=== PATIENT | male | born 1940 | race Caucasian/White ===

== ENCOUNTER 2021-07-18 09:27 | Inpatient (IN) | payer MEDICARE, SELFPAY ==
[2021-07-18] VITALS (20 sets, daily range): BP systolic 138–189; BP diastolic 80–99; PULSE 71–96; RESP 9–28; TEMP 36.4–37.1; O2SAT 95–99; BMI 35.2
--- NOTE | ~2021-07-18 | XR_ITS ---
EXAMINATION: XR chest 1V portable DATE: 07/18/2021 10:00 INDICATION: Altered mental status TECHNIQUE: frontal view of the chest was obtained. COMPARISON: Chest radiograph dated 11/07/2006 FINDINGS: Pulmonary vascular congestion and diffuse increased interstitial pattern throughout both lungs consis tent with mild pulmonary edema. No pleural effusion or pneumothorax. Heart size is within normal limi ts for AP technique. Likely moderate-sized hiatal hernia. Partially visualized vertical yann and pedic le screw fixation for posterior spinal fusion beginning in the lower thoracic spine and extending bel ow the inferior margin of the field of imaging. Visualized bones and soft tissues are unremarkable. IMPRESSION: 1. Pulmonary vascular congestion and mild pulmonary edema. 2. Moderate-sized hiatal hernia. Reviewed, dictated and finalized at location A. M TECH
--- NOTE | ~2021-07-18 | US_ITS ---
EXAMINATION: US venous doppler [facility] DATE: 07/19/2021 11:08 INDICATION: Lower limb swelling TECHNIQUE: Grayscale ultrasound images without and with compression and Doppler ultrasound images of the bilateral lower extremity veins were obtained. COMPARISON: None. FINDINGS: The visualized portions of right common femoral vein, profunda (deep) femoral vein, femoral vein, pop liteal vein, posterior tibial veins, peroneal veins, gastrocnemius vein and greater saphenous vein ou tflow are patent. The visualized portions of left common femoral vein, profunda femoral vein, femoral vein, popliteal v ein, posterior tibial veins, peroneal veins, gastrocnemius vein and greater saphenous vein outflow ar e patent. IMPRESSION: 1. No deep venous thrombosis in either lower limb. Reviewed, dictated and finalized at location A. T END MANAGER
--- NOTE | ~2021-07-18 | CT_ITS ---
EXAMINATION: CT brain wo con DATE: 07/18/2021 10:02 INDICATION: Altered mental status TECHNIQUE: Computed tomography (CT) of the head was performed without intravenous contrast. The dose- length product was 681.00 mGy-cm. Automated exposure control and iterative reconstruction technique were employed. COMPARISON: None FINDINGS: Generalized atrophy. No acute intracranial hemorrhage, infarction, mass or mass effect. No ventriculomegaly or midline shift. Basilar cisterns are patent. There are scattered moderate perivent ricular and subcortical white matter changes, most likely related to small vessel ischemic disease (m icroangiopathy). There is intracranial atherosclerosis. Paranasal sinuses and mastoids are pneumatize d. No depressed skull fractures. IMPRESSION: 1. No acute intracranial abnormality. 2: Chronic age-related findings. Reviewed, dictated and finalized at location B. OW UP SPECIALIST
--- NOTE | ~2021-07-18 | XR_ITS ---
EXAMINATION: XR humerus RT INDICATION: Right arm pain TECHNIQUE: Two views of the right humerus are obtained. COMPARISON: None available FINDINGS: There is advanced osteoarthritis of the glenohumeral and acromioclavicular joints. No fract ure is identified. The soft tissues are unremarkable. IMPRESSION: 1. 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 Reviewed, dictated and finalized at location F. ETING PROGRAMS SPECIALIST IMPRESSION: 1. 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
--- NOTE | 2021-07-18 09:30 | ECG_ITS ---
Measurements Intervals [place] Rate: 86 P: RI: 0 QRS: 6 QRSD: 98 T: 25 QT: 372 QTc: 445 Interpretive Statements ATRIAL FIBRILLATION BASELINE ARTIFACT- I, II, III, AVR, AVL, AVF, V1 ABNORMAL ECG Electronically Signed On 07-18-2021 13:03:52 JEWELRY CUTTER by Braulio Bunn D.O.
--- NOTE | 2021-07-18 09:38 | ED.GENADULT ---
HPI - General Adult General Chief complaint: Altered Mental Status Stated complaint: unresponsive Source: RN notes reviewed History of Present Illness HPI narrative: Patient presents emergency department from home via EMS for altered mental status. History is per the patient as well as the . Patient's states this morning the patient was sleeping in his bed she was sleeping and on the couch and he called her in stating that his machine which is referring to his CPAP machine was making him sick at that time she stated she did not know anything abnormal and took the mask and change it states he kept stating that he felt sick and rolled over but then she noted the patient appeared to not be breathing correctly that time she felt a pulse and could not feel pulse and called EMS when EMS initially arrived they are unable to feel a radial pulse and the patient was altered and not responsive to verbal stimuli and only minimal movement to painful stimuli as they got the pads onto the patient the patient returned back to becoming more awake patient is currently awake and alert x2 he has a history of dementia per the he denies any fevers or chills chest pain shortness of breath abdominal pain nausea vomiting or any other symptoms. Per the the patient did take two tramadol this morning Related Data Allergies Allergy/AdvReac Type Severity Reaction Status Date / Time morphine Allergy Mild SWELLING Verified 07/18/21 09:36 Review of Systems Review of Systems: Gen.: Denies fevers or chills ENT: Denies congestion Respiratory: Denies shortness of breath or cough CV: Denies chest pain or palpitations GI: Denies abdominal pain nausea, emesis or diarrhea denies burning, urgency, frequency or hematuria Musculoskeletal: Denies back pain or muscle pain Neuro: See HPI Skin: Denies rash Except as documented, all other systems reviewed and negative [facility] Past Medical History Medical History (Updated 07/18/21 @ 11:19 by Peewee Amin DO) Diabetes mellitus Hypertension Social History Social History (Updated 07/18/21 @ 10:03 by Peewee Amin DO) Smoking status: Never smoker Exam Narrative: APPEARANCE: No acute distress, nontoxic, resting in bed EYES: EOMI, PERRL HEENT: Normocephalic, atraumatic, OMM RESPIRATORY: No respiratory distress Clear to auscultation bilaterally with no rhonchi wheezing or rales. CARDIOVASCULAR: Irregular irregular without murmurs rubs or gallops. ABDOMINAL: Soft, nontender, nondistended, no rebound or guarding MUSCULOSKELETAl: Moves all extremities. No clubbing, cyanosis or edema. NEURO: Awake and alert x 2. Following commands, speech normal, no focal deficits SKIN:: Warm, dry. No rashes lesions or abrasions PSYCHIATRIC: Normal affect/mood, Course Course Emergency Course: Discussed with patient's he does have a history of atrial fibrillation sees cardiology at [facility] he had no anticoagulation past but now is only on baby aspirin he just recently been taken off of Plavix Discussed with Dr Feng presentation work-up agrees with admission at this time Discussed with Bianca BARTLETT for Dr. Merchant presentation work-up agrees with consult Discussed with patient and family results of workup and diagnosis. Discussed need for admission. Patient and family understand and agree to current treatment plan Vital Signs Vital signs: Vital Signs Temperature 98.7 F 07/18/21 09:28 Pulse Rate 86 07/18/21 09:28 Respiratory Rate 12 07/18/21 09:28 Blood Pressure 189/95 H 07/18/21 09:28 Pulse Oximetry 95 07/18/21 09:28 Temperature 98.7 F 07/18/21 09:28 Pulse Rate 86 07/18/21 09:28 Respiratory Rate 12 07/18/21 09:37 Blood Pressure 189/95 H 07/18/21 09:28 Pulse Oximetry 95 07/18/21 09:37 Medical Decision Making [facility] Narrative Medical decision making narrative: Patient with episode of altered mental status this morning rolled over in bed stating he fel
[2021-07-18 09:44] LABS: Glucose Point of Care 151 mg/dl (65-105)
[2021-07-18 10:00] LABS: Basophils Absolute Auto 0.1 K/mm3 (0.0-0.1); Basophils Percent Auto 0.6 % (0.2-1.2); Eosinophils Absolute Auto 0.3 K/mm3 (0-0.3); Eosinophils Percent Auto 3.2 % (0-4.4); Hematocrit 34.2 % (42.0-52.0); Hemoglobin 10.8 g/dL (14.0-18.0); Immature Granulocyte Absolute 0.04 K/mm3 (0.00-0.031); Immature Granulocyte Percent A 0.5 % (0-0.5); Lymphocytes Absolute Auto 1.41 K/mm3 (0.9-3.2); Lymphocytes Percent Auto 16.3 % (18.3-44.2); Mean Corpuscular HGB Conc 31.6 g/dl (32-36); Mean Corpuscular Hemoglobin 27.6 pg (26-34); Mean Corpuscular Volume 87.5 fl (80-100); Mean Platelet Volume 9.1 fl (7.4-10.4); Monocytes Absolute Auto 1.3 K/mm3 (0.1-0.6); Monocytes Percent Auto 14.6 % (2.6-8.5); Neutrophils Absolute Auto 5.6 K/mm3 (1.3-6.7); Neutrophils Percent Auto 64.8 % (45.5-73.1); Platelet Count Result 284 k/mm3 (150-375); Red Blood Count 3.91 M/mm3 (4.6-6.20); Red Cell Distribution Width 14.7 % (11.5-14.5); White Blood Count 8.6 K/mm3 (4.5-10.0)
[2021-07-18 10:09] LABS: INR 1.1
[2021-07-18 10:10] LABS: Partial Thromboplastin Time 28.9 SECONDS (22.3-36.8)
[2021-07-18 10:12] LABS: Alanine Aminotransferase 13 U/L (4-50); Albumin Level 4.1 g/dL (3.5-5.1); Alkaline Phosphatase 67 U/L (38-126); Anion Gap 10 mmol/L (8-16); Aspartate Amino Transferase 24 U/L (17-59); Bilirubin,Total 0.4 mg/dL (0.2-1.3); Blood Urea Nitrogen 17 mg/dL (9-20); Calcium 9.4 mg/dL (8.4-10.2); Carbon Dioxide 27 mmol/L (22-30); Chloride 99 mmol/L (98-107); Estimated Glomerular Filt Rate > 60; Glucose 161 mg/dL (65-110); Magnesium 1.6 mg/dL (1.6-2.3); Potassium 3.9 mmol/L (3.4-5.0); Sodium 136 mmol/L (137-145)
[2021-07-18 10:23] LABS: NT Pro B Type Natriuretic Pept 1530 pg/mL (5-100); Troponin I < 0.012 ng/mL (0.000-0.034)
[2021-07-18 10:29] LABS: Alveolar/Arterial O2 Gradient 32.8 mmHg; Base Excess ABG -0.8 mEq/l (+/-2.0); Device ROOM AIR; Fractional Inspired Oxygen 21 %; HCO3 ABG 22.7 mEq/l (22.0-26.0); Modified Allen's Test Pass; Oxygen Content ABG 15.2 %vol (16.0-22.0); Oxyhemoglobin 93.4 % THb (90.0-100.0); PCO2 ABG 33.4 mmHg (35.0-45.0); PO2 ABG 76.9 mmHg (80.0-100.0); PO2 FiO2 Ratio Arterial Blood 3.66 %; Site Drawn LEFT RADIAL; Total Hemoglobin 11.5 g/dL (12.0-18.0)
[2021-07-18 11:11] LABS: Add Urine Microscopic? NO; Appearance Urine Clear (Clear); Bilirubin Urine Negative (Negative); Blood Urine Negative (Negative); Color Urine Straw (Yellow); Glucose Urine UA Negative (Negative); Ketones Urine Negative (Negative); Leukocyte Esterase Ur Negative LEU/UL (Negative); Nitrate Urine Negative (Negative); Protein Urine Negative (Negative); Specific Grav Ur 1.006 (1.001-1.035); Urobilinogen Urine Negative mg/dL (<2.0)
--- NOTE | 2021-07-18 11:47 | PM.IMHP ---
H&P: HPI History of Present Illness Date/Time: PATIENT ADMITTED UNDER OBSERVATION STATUS 07/18/21 11:47 Chief Complaint: Unresponsive episode Narrative: Mr. Landis is an 6-year-old gentleman who presented to emergency room via EMS after having an unresponsive episode. Patient does have mild dementia and cannot relay all of his history, is at bedside and is supplementing patient's history. Patient states that he yelled for his this morning because he felt that his CPAP was making him sick. Patient's spouse states she went to check on him and he felt that his CPAP was pulling things in his face. Patient's spouse states she took the CPAP off and [facility] came [facility] patient was still complaining and then he turned onto his side and she states that he would not respond to her. Patient's spouse states she noticed that his breathing was very shallow and she attempted to find a pulse and was unable to feel pulses. Patient's spouse states she called 911 and they told her to start CPR, but she states she does not know how to do CPR and awaited for EMS arrival. Per patient spouse EMS arrived and they stated they could not find a pulse and when they were going to put the pads on the patient he started talking to them. Patient states he recalls his talking to him when he was laying on his side and he recalls talking to the paramedics. Patient denies any chest pain, palpitations, lightheadedness, or dizziness prior to this episode or at this time. Patient denies any shortness of breath, abdominal pain, dysuria, hematuria, fever or chills. Patient is complaining of right arm pain and states the arm hurts with palpation. Patient denies falling onto his arm or any trauma to the area. Patient states that the pain will come and go at times. Patient's spouse states he complained about 2 days ago and never mentioned it again. Patient has a known history of atrial fibrillation status post Watchman device. Patient was on anticoagulation up until last week when he ran out of his anticoagulant. Patient's spouse states that the quality controller had told the finish his prescription of anticoagulation and then stop. Patient's spouse states patient has no history of HI or coronary artery disease. He she states patient has no history of CVA. As already stated patient does have underlying dementia. Patient's spouse states she also does wound care on his legs at times. Patient has venous stasis and has a ?flare to his left leg at this time. Patient's spouse states that patient has never been seen by wound care. Review of Systems Review of Systems: 12 point review of systems was attempted with patient all pertinent positive and negative were pretreated remained remarkable. Unsure of how reliable review of systems are secondary to patient's underlying dementia PMFSH Past Medical History Medical History (Updated 07/18/21 @ 12:38 by Jennifer Yeung APRN) Atrial fibrillation Dementia Diabetes mellitus Dyslipidemia Hypertension LIBIA (obstructive sleep apnea) Presence of Watchman left atrial appendage closure device Prostate CA Traumatic amputation of left index finger Surgical History Surgical History (Updated 07/18/21 @ 12:04 by Jennifer Yeung APRN) History of appendectomy History of cataract removal with insertion of prosthetic lens History of lumbosacral spine surgery S/p total knee replacement, bilateral Traumatic amputation of right thumb Social History Social History (Updated 07/18/21 @ 12:04 by Jennifer Yeung APRN) Smoking status: Never smoker Alcohol intake: never Substance use: never Living arrangements: with family Occupation/Education: retired Meds Home Medications and Allergies Home Medications Medication Instructions Recorded Confirmed Type albuterol sulfate [Ventolin HFA] 2 puff INHALATION PRN PRN 07/18/21 07/18/21 History allopurinol 300 mg PO DAILY 07/18/21 07/18/21 History aspirin
[2021-07-18] MEDS: ENOXAPARIN 40 MG/0.4 ML SYRINGE SUB-Q (12:19)
--- NOTE | 2021-07-18 13:55 | ADMGEN ---
This patient, Jesus Landis, was admitted to Intensive Care Unit-2. Patient/family oriented to hospital policies and general routines including ID bracelet, bed and alarms, visiting hours, pain management, procedures, bathroom and other care routines, personal items, smoking policy, room service/diet, and visiting hours. Information on how to activate the Rapid Response Team has been discussed. Patient/Family are encouraged to report perceived risks to care and to ask questions if they do not understand what they are told or what they should do.
[2021-07-18 14:11] LABS: Troponin I < 0.012 ng/mL (0.000-0.034)
[2021-07-18 14:22] LABS: Glucose Point of Care 172 mg/dl (65-105)
[2021-07-18] MEDS: traMADol HCL (*CRX) 50 MG TABLET 100 MG PO ×2 (14:30→18:10)
--- NOTE | 2021-07-18 14:35 | PM.CNCAR ---
History of Present Illness History of Present Illness Consult date/time: 07/18/21 14:35 Consult reason: atrial fibrillation Reason For Visit: Altered Mental Status/CHF Narrative: This is an 80-year-old man that I am seeing this afternoon at the request of the hospitalist because he was brought into the hospital earlier this morning apparently because his was unable to arouse him at their home. I have never seen this gentleman before and I do not see any old records at [facility] in the electronic record. He has a history of dementia and according to the records a history of chronic atrial fibrillation. The patient is aware of the fact that he has a diagnosis of atrial fibrillation and cannot really tell me much about the specific management of it. He does state that he his furniture dipper who apparently practices at [facility] in [place] recommended and implanted a Watchman device several months ago. He was on some anticoagulation therapy for a short time after the procedure which is subsequently been stopped. He can not really tell me of any other specific cardiac problems or diagnosis. Apparently he also has sleep apnea and uses a CPAP device chronically. The patient states that he was concerned that he had problem with his CPAP device since it was blowing air and his face. He states his came in to help him adjusted after that apparently she was unable to arouse him Niyah get a response. She could not feel a radial artery pulse and so she called 911. Apparently according to the record EMS did feel a pulse in spontaneously he regained responsiveness at the scene. He was brought into this hospital and admitted to the IMU for further observation and management. He of course does not take an anticoagulant since he had just had a Watchman device deployed for that reason. He takes a modest dose of metoprolol lisinopril and atorvastatin. He does not report having any recent chest pain pressure or heaviness he had has never had a syncopal episode in the past that he is aware of. In this setting we have been asked to see him in consultation. Since he has been in the hospital nothing other than rate controlled AFib has been demonstrated on telemetry he no significant tachy or bradycardic episodes have been recorder ordered or a demonstrated. It should also be mentioned that he has do not resuscitate orders on his chart Review of Systems Constitutional: Constitutional: Reports lethargy Eyes: Eyes: Reports no additional eye complaints ENT: Reports system reviewed and no additional complaints, except as documented Cardiovascular: Cardiovascular: Reports as per HPI Respiratory: Respiratory: Reports no additional respiratory complaints Musculoskeletal: Musculoskeletal: Reports no additional musculoskeletal complaints Integumentary/Breasts: Skin/Breast: Reports system reviewed and no additional complaints, except as docu Neurologic: Reports system reviewed and no additional complaints, except as documented Endocrine: Endocrine: Reports no additional endocrine complaints Hematologic/Lymphatic: Hematologic/Lymphatic: Reports no additional hematologic/lymphatic complaints Allergic/Immunologic: Allergic/Immunologic: Reports no additional allergic/immunologic complaints [facility] Past Medical History Medical History (Updated 07/18/21 @ 12:38 by Jennifer Yeung APRN) Atrial fibrillation Dementia Diabetes mellitus Dyslipidemia Hypertension LIBIA (obstructive sleep apnea) Presence of Watchman left atrial appendage closure device Prostate CA Traumatic amputation of left index finger Surgical History Surgical History (Updated 07/18/21 @ 12:04 by Jennifer Yeung APRN) History of appendectomy History of cataract removal with insertion of prosthetic lens History of lumbosacral spine surgery S/p total knee replacement, bilateral Traumatic amputation of right thumb Social History Social History (Updated 07/18/21
[2021-07-18 17:17] LABS: Troponin I < 0.012 ng/mL (0.000-0.034)
[2021-07-18 17:36] LABS: Glucose Point of Care 185 mg/dl (65-105)
[2021-07-18] MEDS: FUROSEMIDE 40 MG TABLET PO (18:10)
[2021-07-18] MEDS: PANTOPRAZOLE 40 MG TABLET PO (20:42)
[2021-07-18] MEDS: INSULIN GLARGINE (*BKC) 100 UNITS/ML 25 UNITS SUB-Q (20:47)
[2021-07-18 21:08] LABS: Glucose Point of Care 248 mg/dl (65-105)
[2021-07-19] VITALS (16 sets, daily range): BP systolic 115–155; BP diastolic 70–101; PULSE 75–114; RESP 20–27; TEMP 36.9–37.2; O2SAT 91–98
[2021-07-19 06:44] LABS: Basophils Absolute Auto 0.1 K/mm3 (0.0-0.1); Basophils Percent Auto 0.5 % (0.2-1.2); Eosinophils Absolute Auto 0.1 K/mm3 (0-0.3); Eosinophils Percent Auto 0.9 % (0-4.4); Hematocrit 34.4 % (42.0-52.0); Hemoglobin 10.8 g/dL (14.0-18.0); Immature Granulocyte Absolute 0.06 K/mm3 (0.00-0.031); Immature Granulocyte Percent A 0.5 % (0-0.5); Lymphocytes Absolute Auto 1.37 K/mm3 (0.9-3.2); Lymphocytes Percent Auto 12.3 % (18.3-44.2); Mean Corpuscular HGB Conc 31.4 g/dl (32-36); Mean Corpuscular Hemoglobin 27.4 pg (26-34); Mean Corpuscular Volume 87.3 fl (80-100); Mean Platelet Volume 9.4 fl (7.4-10.4); Monocytes Absolute Auto 1.3 K/mm3 (0.1-0.6); Monocytes Percent Auto 11.7 % (2.6-8.5); Neutrophils Absolute Auto 8.2 K/mm3 (1.3-6.7); Neutrophils Percent Auto 74.1 % (45.5-73.1); Platelet Count Result 277 k/mm3 (150-375); Red Blood Count 3.94 M/mm3 (4.6-6.20); Red Cell Distribution Width 14.7 % (11.5-14.5); White Blood Count 11.1 K/mm3 (4.5-10.0)
[2021-07-19 07:02] LABS: Anion Gap 8 mmol/L (8-16); Blood Urea Nitrogen 14 mg/dL (9-20); Calcium 9.1 mg/dL (8.4-10.2); Carbon Dioxide 27 mmol/L (22-30); Chloride 102 mmol/L (98-107); Estimated CRCL calculation 95 ml/min; Estimated Glomerular Filt Rate > 60; Glucose 171 mg/dL (65-110); Potassium 3.6 mmol/L (3.4-5.0); Sodium 137 mmol/L (137-145)
[2021-07-19] MEDS: MAGNESIUM SULF 2 GM/WATER 50ML 2 GM/50 ML BAG IVPB (07:53)
[2021-07-19] MEDS: traMADol HCL (*CRX) 50 MG TABLET 100 MG PO ×3 (07:53→20:13)
[2021-07-19] MEDS: allopurinoL 300 MG TABLET PO (07:54)
[2021-07-19] MEDS: POTASSIUM CHLORIDE 20 MEQ TABLET 40 MEQ PO (07:54)
[2021-07-19] MEDS: ASPIRIN 81 MG CHEWABLE TABLET PO (07:54)
[2021-07-19] MEDS: POTASSIUM CHLORIDE 10 MEQ TABLET.ER PO (07:54)
[2021-07-19] MEDS: FUROSEMIDE 40 MG TABLET PO ×2 (07:55→16:46)
[2021-07-19] MEDS: METOPROLOL SUCCINATE EXT REL 25 MG TABCR PO (07:55)
[2021-07-19] MEDS: ATORVASTATIN 40 MG TABLET PO (07:55)
[2021-07-19] MEDS: lisinopriL 10 MG TABLET PO (07:55)
[2021-07-19] MEDS: ISOSORBIDE MONONITRATE 30 MG TAB.ER.24H PO (07:55)
[2021-07-19] MEDS: SERTRALINE HCL 50 MG TABLET PO (07:56)
[2021-07-19] MEDS: PANTOPRAZOLE 40 MG TABLET PO ×2 (07:56→20:14)
[2021-07-19 08:17] LABS: Glucose Point of Care 176 mg/dl (65-105)
--- NOTE | 2021-07-19 09:12 | PM.IMPN ---
Progress Note: A&P Assessment and Plan (1) Unresponsive episode: Code(s): R41.89 - Other symptoms and signs involving cognitive functions and awareness Status: Acute Assessment and Plan: Etiology is unclear, CT head was negative for any acute intracranial abnormalities. -patient seems to be at baseline, answers to questions appropriately moves all extremities. 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 at [facility] in [place] -will increase metoprolol for better rate controlled and blood pressure control (3) LIBIA (obstructive sleep apnea): Code(s): G47.33 - Obstructive sleep apnea (adult) (pediatric) Status: Acute Assessment and Plan: CPAP at night and while asleep (4) Hypertension: Code(s): I10 - Essential (primary) hypertension Status: Acute Assessment and Plan: Continue Lasix, isosorbide mononitrate, lisinopril, metoprolol (5) Diabetes mellitus: Code(s): E11.9 - Type 2 diabetes mellitus without complications Status: Acute Assessment and Plan: Continue Lantus and Januvia -Accu-Cheks and sliding scale insulin (6) Dementia: Code(s): F03.90 - Unspecified dementia without behavioral disturbance Status: Acute Assessment and Plan: Continue Sertraline Additional Plan DVT prophylaxis: Enoxaparin Stress ulcer prophylaxis: Protonix Code status: Do not resuscitate This dictation may have been done utilizing a voice recognition system. Attempts have been made to correct errors. However, there may be uncorrected grammatical, spelling, and recognition errors present Subjective Date/time seen: 07/19/21 09:12 Interval history: 80-year-old male with past medical history of atrial fibrillation status post Watchman device, dementia, diabetes, hyperlipidemia, hypertension, obstructive sleep apnea, prostate cancer presented the ED on 07/18/2021 with complains of unresponsive episodes likely related to his CPAP not working well. CT scan of the head did not show any acute intracranial abnormalities, chest x-ray showed pulmonary vascular congestion and mild pulmonary edema. 07/19/2021: Patient seen and examined the ICU, is awake, alert, oriented to place and person, answers to questions appropriately, follows hands appropriately. States he wants to go home. Remains in AFib,, hemodynamically stable, afebrile with low urine output. On room air with good O2 sats. Review of Systems Review of Systems: All systems reviewed & are unremarkable except as noted in HPI and below Exam Narrative: General: Patient is awake in no distress HEENT: Pupils equal and reactive Neck: Supple Respiratory: Clear to auscultation bilaterally Cardiac: Irregularly regular rhythm, tachycardia Abdomen: Soft, nontender, nondistended, normoactive bowel sounds. Abdomen is protuberant Extremities: No edema, Neuro: Patient is awake, alert, oriented to place and person, follows simple commands in all extremities and answers to questions appropriately Skin: Dry skin, warm Psych: Normal affect and mentation Objective Data Vital Signs Vital Signs: Vital Signs - 24 hr 07/18/21 09:28 07/18/21 09:35 07/18/21 09:37 Temperature 98.7 F Pulse Rate 86 81 Respiratory Rate 12 11 L 12 Blood Pressure 189/95 H Pulse Oximetry 95 99 95 07/18/21 10:08 07/18/21 10:28 07/18/21 10:30 Temperature Pulse Rate 81 74 77 Respiratory Rate 11 L 14 14 Blood Pressure Pulse Oximetry 96 98 97 07/18/21 10:31 07/18/21 10:55 07/18/21 11:05 Temperature Pulse Rate 92 73 81 Respiratory Rate 17 28 H 18 Blood Pressure 157/99 H Pulse Oximetry 98 07/18/21 11:18 07/18/21 11:31 07/18/21 11:33 Temper
[2021-07-19] MEDS: METOPROLOL SUCCINATE EXT REL 12.5 MG TABCR PO (10:14)
[2021-07-19] MEDS: ENOXAPARIN 40 MG/0.4 ML SYRINGE SUB-Q (10:15)
[2021-07-19 11:59] LABS: Glucose Point of Care 243 mg/dl (65-105)
[2021-07-19] MEDS: INSULIN ASPART (*BKC) 100 UNITS/ML SUB-Q ×2 (13:03→20:15)
[2021-07-19 16:51] LABS: Glucose Point of Care 195 mg/dl (65-105)
[2021-07-19] MEDS: INSULIN GLARGINE (*BKC) 100 UNITS/ML 25 UNITS SUB-Q (20:14)
[2021-07-19 20:53] LABS: Glucose Point of Care 230 mg/dl (65-105)
[2021-07-20] VITALS (14 sets, daily range): BP systolic 112–149; BP diastolic 54–98; PULSE 66–98; RESP 14–26; TEMP 36.4–36.8; O2SAT 91–97
[2021-07-20 04:36] LABS: Basophils Absolute Auto 0.1 K/mm3 (0.0-0.1); Basophils Percent Auto 0.5 % (0.2-1.2); Eosinophils Absolute Auto 0.2 K/mm3 (0-0.3); Eosinophils Percent Auto 1.9 % (0-4.4); Hemoglobin 10.9 g/dL (14.0-18.0); Immature Granulocyte Absolute 0.04 K/mm3 (0.00-0.031); Immature Granulocyte Percent A 0.4 % (0-0.5); Lymphocytes Absolute Auto 1.47 K/mm3 (0.9-3.2); Lymphocytes Percent Auto 13.5 % (18.3-44.2); Mean Corpuscular HGB Conc 31.1 g/dl (32-36); Mean Corpuscular Hemoglobin 27.6 pg (26-34); Mean Corpuscular Volume 88.6 fl (80-100); Mean Platelet Volume 9.4 fl (7.4-10.4); Monocytes Absolute Auto 1.3 K/mm3 (0.1-0.6); Monocytes Percent Auto 12.2 % (2.6-8.5); Neutrophils Absolute Auto 7.8 K/mm3 (1.3-6.7); Neutrophils Percent Auto 71.5 % (45.5-73.1); Platelet Count Result 279 k/mm3 (150-375); Red Blood Count 3.95 M/mm3 (4.6-6.20); Red Cell Distribution Width 14.8 % (11.5-14.5); White Blood Count 10.9 K/mm3 (4.5-10.0)
[2021-07-20 04:49] LABS: Anion Gap 5 mmol/L (8-16); Blood Urea Nitrogen 16 mg/dL (9-20); Calcium 8.7 mg/dL (8.4-10.2); Carbon Dioxide 29 mmol/L (22-30); Chloride 102 mmol/L (98-107); Estimated CRCL calculation 84 ml/min; Estimated Glomerular Filt Rate > 60; Glucose 175 mg/dL (65-110); Potassium 3.9 mmol/L (3.4-5.0); Sodium 136 mmol/L (137-145)
[2021-07-20 08:15] LABS: Glucose Point of Care 178 mg/dl (65-105)
[2021-07-20] MEDS: POTASSIUM CHLORIDE 10 MEQ TABLET.ER PO (08:45)
[2021-07-20] MEDS: ASPIRIN 81 MG CHEWABLE TABLET PO (08:45)
[2021-07-20] MEDS: FUROSEMIDE 40 MG TABLET PO ×2 (08:46→16:59)
[2021-07-20] MEDS: allopurinoL 300 MG TABLET PO (08:46)
[2021-07-20] MEDS: ATORVASTATIN 40 MG TABLET PO (08:46)
[2021-07-20] MEDS: ENOXAPARIN 40 MG/0.4 ML SYRINGE SUB-Q (08:46)
[2021-07-20] MEDS: lisinopriL 10 MG TABLET PO (08:46)
[2021-07-20] MEDS: ISOSORBIDE MONONITRATE 30 MG TAB.ER.24H PO (08:46)
[2021-07-20] MEDS: SERTRALINE HCL 50 MG TABLET PO (08:47)
[2021-07-20] MEDS: METOPROLOL SUCCINATE EXT REL 12.5 MG TABCR 37.5 MG PO (08:47)
[2021-07-20] MEDS: PANTOPRAZOLE 40 MG TABLET PO ×2 (08:47→20:18)
[2021-07-20] MEDS: traMADol HCL (*CRX) 50 MG TABLET 100 MG PO ×3 (08:48→16:58)
--- NOTE | 2021-07-20 09:42 | PM.IMPN ---
Progress Note: A&P Assessment and Plan (1) Unresponsive episode: Code(s): R41.89 - Other symptoms and signs involving cognitive functions and awareness Status: Acute Assessment and Plan: Unclear etiology, CT head was negative for any acute intracranial abnormalities., according the patient and his it could have been secondary to his CPAP malfunctioning -patient seems to be at baseline, answers to questions appropriately moves all extremities. 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 kettle tender at [facility] -continue metoprolol for better rate control and blood pressure control (3) LIBIA (obstructive sleep apnea): Code(s): G47.33 - Obstructive sleep apnea (adult) (pediatric) Status: Acute Assessment and Plan: CPAP at night and while asleep (4) Hypertension: Code(s): I10 - Essential (primary) hypertension Status: Acute Assessment and Plan: Continue Lasix, isosorbide mononitrate, lisinopril, metoprolol (5) Diabetes mellitus: Code(s): E11.9 - Type 2 diabetes mellitus without complications Status: Acute Assessment and Plan: Continue Lantus and Januvia -Accu-Cheks and sliding scale insulin (6) Dementia: Code(s): F03.90 - Unspecified dementia without behavioral disturbance Status: Acute Assessment and Plan: Continue Sertraline Additional Plan DVT prophylaxis: Enoxaparin Stress ulcer prophylaxis: Protonix Code status: Do not resuscitate This dictation may have been done utilizing a voice recognition system. Attempts have been made to correct errors. However, there may be uncorrected grammatical, spelling, and recognition errors present Subjective Date/time seen: 07/20/21 09:42 Interval history: 80-year-old male with past medical history of atrial fibrillation status post Watchman device, dementia, diabetes, hyperlipidemia, hypertension, obstructive sleep apnea, prostate cancer presented the ED on 07/18/2021 with complains of unresponsive episodes likely related to his CPAP not working well. CT scan of the head did not show any acute intracranial abnormalities, chest x-ray showed pulmonary vascular congestion and mild pulmonary edema. 07/20/2021: Patient seen and examined the ICU, is awake, alert, oriented to place and person, answers to questions appropriately, follows simple commands in all extremities. He is complaining of unable to move his bowels, constipation occasionally at home. Remains in AFib,, hemodynamically stable, afebrile urine output has been adequate, currently on room air with good O2 sats. Denies any chest pain, abdominal pain, nausea, vomiting Review of Systems Review of Systems: All systems reviewed & are unremarkable except as noted in HPI and below Exam Narrative: General: Patient is awake in no distress HEENT: Pupils equal and reactive Neck: Supple Respiratory: Clear to auscultation bilaterally Cardiac: Irregularly regular rhythm, tachycardia Abdomen: Soft, nontender, nondistended, normoactive bowel sounds. Abdomen is protuberant Extremities: No edema, Neuro: Patient is awake, alert, oriented to place and person, follows simple commands in all extremities and answers to questions appropriately Skin: Dry skin, warm Psych: Normal affect and mentation Objective Data Vital Signs Vital Signs: Vital Signs - 24 hr 07/19/21 10:00 07/19/21 10:14 07/19/21 12:00 Temperature 99 F Pulse Rate 101 H 98 83 Respiratory Rate 22 H Blood Pressure 118/70 Pulse Oximetry 94 07/19/21 14:00 07/19/21 16:00 07/19/21 18:00 Temperature Pulse Rate 91 89 90 Respiratory Rate 22 H Blood Pressure 115/71 Pulse Oximetry 96 06/29
[2021-07-20] MEDS: SENNA/DOCUSATE SODIUM TABLET 1 TAB PO (11:24)
[2021-07-20 12:44] LABS: Glucose Point of Care 207 mg/dl (65-105)
[2021-07-20] MEDS: INSULIN ASPART (*BKC) 100 UNITS/ML SUB-Q (13:28)
--- NOTE | 2021-07-20 15:25 | PC.NURSE ---
PATIENT TRANSFERRED TO ROOM 251. REPORT CALLED TO SHANNA GOMEZ. ALL QUESTIONS ANSWERED.
[2021-07-20 16:36] LABS: Glucose Point of Care 156 mg/dl (65-105)
--- NOTE | 2021-07-20 17:26 | PM.IMPN ---
Progress Note: A&P Assessment and Plan (1) Unresponsive episode: Code(s): R41.89 - Other symptoms and signs involving cognitive functions and awareness Status: Acute Assessment and Plan: Unclear etiology, CT head was negative for any acute intracranial abnormalities., according the patient and his it could have been secondary to his CPAP malfunctioning -patient seems to be at baseline, answers to questions appropriately moves all extremities. 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 a flattening machine operator at [facility] -continue metoprolol for better rate control and blood pressure control (3) LIBIA (obstructive sleep apnea): Code(s): G47.33 - Obstructive sleep apnea (adult) (pediatric) Status: Acute Assessment and Plan: CPAP at night and while asleep (4) Hypertension: Code(s): I10 - Essential (primary) hypertension Status: Acute Assessment and Plan: Continue Lasix, isosorbide mononitrate, lisinopril, metoprolol (5) Diabetes mellitus: Code(s): E11.9 - Type 2 diabetes mellitus without complications Status: Acute Assessment and Plan: Continue Lantus and Januvia -Accu-Cheks and sliding scale insulin (6) Dementia: Code(s): F03.90 - Unspecified dementia without behavioral disturbance Status: Acute Assessment and Plan: Continue Sertraline Additional Plan DVT prophylaxis: Enoxaparin Stress ulcer prophylaxis: Protonix Code status: Do not resuscitate This dictation may have been done utilizing a voice recognition system. Attempts have been made to correct errors. However, there may be uncorrected grammatical, spelling, and recognition errors present Subjective Date/time seen: 07/20/21 17:26 S: Patient was seen examined at the bedside. He denies any complaints. Appetite is robust. He is anxious to go home. Interval history: 80-year-old male with past medical history of atrial fibrillation status post Watchman device, dementia, diabetes, hyperlipidemia, hypertension, obstructive sleep apnea, prostate cancer presented the ED on 07/18/2021 with complains of unresponsive episodes likely related to his CPAP not working well. CT scan of the head did not show any acute intracranial abnormalities, chest x-ray showed pulmonary vascular congestion and mild pulmonary edema. 07/20/2021: Patient seen and examined the ICU, is awake, alert, oriented to place and person, answers to questions appropriately, follows simple commands in all extremities. He is complaining of unable to move his bowels, constipation occasionally at home. Remains in AFib,, hemodynamically stable, afebrile urine output has been adequate, currently on room air with good O2 sats. Denies any chest pain, abdominal pain, nausea, vomiting Review of Systems Review of Systems: All systems reviewed & are unremarkable except as noted in HPI and below Neurologic: Reports confusion (Patient confused to time but does reorient) Psychiatric: Psychiatric: Reports confusion (Patient confused to time but does reorient) Exam Narrative: General: Patient is awake in no distress HEENT: Pupils equal and reactive Neck: Supple Respiratory: Clear to auscultation bilaterally Cardiac: Irregularly regular rhythm, tachycardia Abdomen: Soft, nontender, nondistended, normoactive bowel sounds. Abdomen is protuberant Extremities: No edema, Neuro: Patient is awake, alert, oriented to place and person, follows simple commands in all extremities and answers to questions appropriately Skin: Dry skin, warm Psych: Normal affect and mentation Const: General: cooperative, no acute distress, alert, awake and confusion (Patient confused to time but pereira
--- NOTE | 2021-07-20 17:57 | PM.DS ---
DS: Admitting Diagnosis Discharge Date 07/20/2021 Admitting Diagnosis (1) Unresponsive episode: (2) Atrial fibrillation: (3) Hypertension: (4) Diabetes mellitus: (5) LIBIA (obstructive sleep apnea): DS: Discharge Diagnosis Discharge Diagnosis (1) Unresponsive episode: Code(s): R41.89 - Other symptoms and signs involving cognitive functions and awareness Status: Acute Assessment and Plan: Unclear etiology, CT head was negative for any acute intracranial abnormalities., according the patient and his it could have been secondary to his CPAP malfunctioning -patient seems to be at baseline, answers to questions appropriately moves all extremities. 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 a net software developer at [facility] -continue metoprolol for better rate control and blood pressure control (3) LIBIA (obstructive sleep apnea): Code(s): G47.33 - Obstructive sleep apnea (adult) (pediatric) Status: Acute Assessment and Plan: CPAP at night and while asleep (4) Hypertension: Code(s): I10 - Essential (primary) hypertension Status: Acute Assessment and Plan: Continue Lasix, isosorbide mononitrate, lisinopril, metoprolol (5) Diabetes mellitus: Code(s): E11.9 - Type 2 diabetes mellitus without complications Status: Acute Assessment and Plan: Continue Lantus and Januvia -Accu-Cheks and sliding scale insulin (6) Dementia: Code(s): F03.90 - Unspecified dementia without behavioral disturbance Status: Acute Assessment and Plan: Continue Sertraline DS: Summary Hospital Course Reason for hospitalization: Unresponsiveness. Hospital Course: Please refer to admission H& P. Briefly,Mr. Landis is an 80-year-old gentleman who presented to emergency room via EMS after having an unresponsive episode. Patient does have mild dementia and cannot relay all of his history, is at bedside and is supplementing patient's history. Patient states that he yelled for his this morning because he felt that his CPAP was making him sick. Patient's spouse states she went to check on him and he felt that his CPAP was pulling things in his face. Patient's spouse states [facility] patient was still complaining and then he turned onto his side and she states that he would not respond to her. Patient's spouse states she noticed that his breathing was very shallow and she attempted to find a pulse and was unable to feel pulses. Patient's spouse states she called 911 and they told her to start CPR, but she states she does not know how to do CPR and awaited for EMS arrival. Per patient spouse EMS arrived and they stated they could not find a pulse and when they were going to put the pads on the patient he started talking to them. Patient states he recalls his talking to him when he was laying on his side and he recalls talking to the paramedics. Patient has a known history of atrial fibrillation status post Watchman device. Patient was on anticoagulation up until last week when he ran out of his anticoagulant. Patient's spouse states that the net software developer had told the finish his prescription of anticoagulation and then stop. Patient's spouse states patient has no history of IL or coronary artery disease. He she states patient has no history of CVA. As already stated patient does have underlying dementia. Patient's spouse states she also does wound care on his legs at times. Patient has venous stasis and has a ?flare to his left leg at this time. Patient's spouse states that patient has never been seen by wound care. Time Spent with Patient Time attestation: Total time spe
--- NOTE | 2021-07-20 19:22 | PC.NURSE ---
This patient, Jesus Landis, was received from [ ICU] on 07/20/21 at 1615. Patient/family oriented to unit policies and routines
[2021-07-20] MEDS: INSULIN GLARGINE (*BKC) 100 UNITS/ML 25 UNITS SUB-Q (20:18)
[2021-07-20 21:25] LABS: Glucose Point of Care 186 mg/dl (65-105)
[2021-07-21] VITALS: BP 117/72; PULSE 72; RESP 17; TEMP 36.6; O2SAT 97
[2021-07-21 01:15] VITALS: PULSE 91; O2SAT 93
[2021-07-21 04:51] VITALS: PULSE 84; O2SAT 94
[2021-07-21 05:57] LABS: Basophils Absolute Auto 0.1 K/mm3 (0.0-0.1); Basophils Percent Auto 0.6 % (0.2-1.2); Eosinophils Absolute Auto 0.3 K/mm3 (0-0.3); Eosinophils Percent Auto 2.5 % (0-4.4); Hematocrit 34.7 % (42.0-52.0); Hemoglobin 10.6 g/dL (14.0-18.0); Immature Granulocyte Absolute 0.07 K/mm3 (0.00-0.031); Immature Granulocyte Percent A 0.6 % (0-0.5); Lymphocytes Absolute Auto 1.65 K/mm3 (0.9-3.2); Lymphocytes Percent Auto 13.9 % (18.3-44.2); Mean Corpuscular HGB Conc 30.5 g/dl (32-36); Mean Corpuscular Hemoglobin 27.3 pg (26-34); Mean Corpuscular Volume 89.4 fl (80-100); Mean Platelet Volume 9.4 fl (7.4-10.4); Monocytes Absolute Auto 1.5 K/mm3 (0.1-0.6); Neutrophils Absolute Auto 8.2 K/mm3 (1.3-6.7); Neutrophils Percent Auto 69.4 % (45.5-73.1); Platelet Count Result 291 k/mm3 (150-375); Red Blood Count 3.88 M/mm3 (4.6-6.20); White Blood Count 11.9 K/mm3 (4.5-10.0)
[2021-07-21 06:15] LABS: Anion Gap 7 mmol/L (8-16); Blood Urea Nitrogen 20 mg/dL (9-20); Calcium 8.7 mg/dL (8.4-10.2); Carbon Dioxide 29 mmol/L (22-30); Chloride 100 mmol/L (98-107); Estimated CRCL calculation 74 ml/min; Estimated Glomerular Filt Rate > 60; Glucose 166 mg/dL (65-110); Potassium 3.8 mmol/L (3.4-5.0); Sodium 136 mmol/L (137-145)
[2021-07-21 08:14] LABS: Glucose Point of Care 152 mg/dl (65-105)
[2021-07-21] MEDS: POTASSIUM CHLORIDE 10 MEQ TABLET.ER PO (08:32)
[2021-07-21] MEDS: ATORVASTATIN 40 MG TABLET PO (08:32)
[2021-07-21] MEDS: ENOXAPARIN 40 MG/0.4 ML SYRINGE SUB-Q (08:32)
[2021-07-21] MEDS: ISOSORBIDE MONONITRATE 30 MG TAB.ER.24H PO (08:32)
[2021-07-21] MEDS: allopurinoL 300 MG TABLET PO (08:32)
[2021-07-21] MEDS: FUROSEMIDE 40 MG TABLET PO (08:32)
[2021-07-21] MEDS: ASPIRIN 81 MG CHEWABLE TABLET PO (08:32)
[2021-07-21 08:33] VITALS: PULSE 75
[2021-07-21] MEDS: PANTOPRAZOLE 40 MG TABLET PO (08:33)
[2021-07-21] MEDS: METOPROLOL SUCCINATE EXT REL 12.5 MG TABCR 37.5 MG PO (08:33)
[2021-07-21] MEDS: lisinopriL 10 MG TABLET PO (08:33)
[2021-07-21] MEDS: SERTRALINE HCL 50 MG TABLET PO (08:33)
[2021-07-21] MEDS: traMADol HCL (*CRX) 50 MG TABLET 100 MG PO (08:35)
== END 2021-07-21 11:50 | disposition home or self-care (01) | DRG 884 ==
LOC: ANHED 11:19 → ANHICU 12:17 → ANH2MED 07-20 15:08
PROVIDERS: Nurse Practitioner Adult Health; Admitting Provider Internal Medicine; Emergency Provider Emergency Medicine; PCP Family Medicine; Visit Provider Internal Medicine
DX: R40.4 Transient alteration of awareness (principal); Y82.8 Other medical devices associated with adverse incidents; I48.91 Unspecified atrial fibrillation; G47.33 Obstructive sleep apnea (adult) (pediatric); E11.9 Type 2 diabetes mellitus without complications; F03.90 Unspecified dementia, unspecified severity, without behavioral disturbance, psychotic disturbance, mood disturbance, and anxiety; I10 Essential (primary) hypertension; I87.2 Venous insufficiency (chronic) (peripheral); E78.5 Hyperlipidemia, unspecified; R29.700 NIHSS score 0; Z96.653 Presence of artificial knee joint, bilateral; Z96.1 Presence of intraocular lens; Z66 Do not resuscitate; Z98.49 Cataract extraction status, unspecified eye; Z85.46 Personal history of malignant neoplasm of prostate; Z89.022 Acquired absence of left finger(s); Z90.49 Acquired absence of other specified parts of digestive tract
CPT/HCPCS: 36415; 36600; 51701; 70450; 71045; 73060; 80048; 80053; 81003; 82805; 82948; 83735; 83880; 84484; 85025; 85610; 85730; 93005; 93970; 96372; 96374; 97110; 97116; 97161; 97166; 97530; 99285; A9270; G0378; J1650; J1815; J3475

== ENCOUNTER 2022-07-26 11:54 | Inpatient (IN) | payer MEDICARE, SELFPAY ==
[2022-07-26] VITALS (14 sets, daily range): BP systolic 86–104; BP diastolic 53–73; PULSE 55–85; RESP 14–22; TEMP 36.6–36.8; O2SAT 94–98; BMI 36.0
--- NOTE | ~2022-07-26 | CT_ITS ---
EXAMINATION: CT chst ab pel thor lum w DATE: 07/26/2022 14:43 INDICATION: Chest, abdominal, and spine injury. Falls. COVID-19 positive. TECHNIQUE: Computed tomography (CT) of the chest, abdomen, pelvis, thoracic spine, and lumbar spine w as performed with 100 mL Omnipaque 350 intravenous contrast. Automated exposure control and iterative reconstruction technique were employed. The dose-length product was 1817.00 mGy-cm. COMPARISON: None FINDINGS: CHEST CT: There are peripheral interstitial opacities and reticular opacities in all lobes. There are periphera l reticular opacities with calcifications in right lower lobe. No pleural effusion. There is an 8 mm nodule in the thyroid, likely not clinically significant. Cardiomegaly is noted. There are coronary a rtery calcifications. No pericardial effusion. There is a closure device in left atrial appendage. Th ere is a large hiatal hernia. There is mild mediastinal lymphadenopathy. ABDOMEN/PELVIS CT: The liver is normal. The gallbladder is distended. The spleen, pancreas, and adrenal glands are kriss l. There is cortical thinning of the kidneys. There are cysts in the kidneys measuring up to 7.5 cm o n the right. There is an umbilical hernia containing fat. The bladder is decompressed by a Young cath eter. The prostate is mildly enlarged. There are no dilated loops of bowel. The appendix is not visua lized. 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 There is moderate stenosis of left renal artery. Of the renal arteries. There is calcified atherosclerosis of the aorta and man y of the other arteries. There is moderate stenosis of celiac axis and mild stenosis of superior mese nteric artery. There is mild stenosis of inferior mesenteric artery. There are no pathologically enla rged lymph nodes. There is no free intraperitoneal fluid. THORACIC SPINE CT: There is 3 degrees dextrocurvature of thoracic spine. There is a chronic compression fracture of T12. There is mildly decreased disc height at T6-T7. There is multilevel mild to moderate facet joint ost eoarthrosis. There are changes of posterior fusion procedure in lumbar spine with laminar hooks from T10 to T12. There is multilevel mild facet joint osteoarthritis. There is moderate bilateral neural f oraminal stenosis from T7-T8 through T10-T11. No central canal stenosis. LUMBAR SPINE CT: There is 7 degrees levocurvature of lumbar spine. There are changes of anterior fusion procedure from T12/L2 with L1 corpectomy and interbody strut graft. There are pedicle screws in L2. There is 3 mm r etrolisthesis of L2 on L3. There is mild chronic anterior wedging of L2 vertebral body. There is oumou rely decreased disc height at L2-L3, moderately decreased disc height at L3-L4, and moderately decrea sed disc height at L4-L5 and L5-S1. The following disc levels are specifically discussed: L1-L2: There is mild bilateral facet joint hypertrophy. There is mild bilateral neural foraminal sten osis. There is no central canal stenosis. L2-L3: The disc is bulging. There is moderate right and severe left facet joint osteoarthritis. There is moderate bilateral neural foraminal stenosis. There is moderate central canal stenosis. L3-L4: The disc is bulging. There is severe right and moderate left facet joint osteoarthritis. There is moderate bilateral neural foraminal stenosis. There is mild central canal stenosis. L4-L5: The disc is bulging. There is severe bilateral facet joint osteoarthritis. There is moderate b ilateral neural foraminal stenosis. There is mild central canal stenosis. L5-S1: The disc is bulging. There is severe bilateral facet joint osteoarthritis. There is moderate b ilateral neural foraminal stenosis. There is mild central canal stenosis. IMPRESSION: 1. Diffuse lung disease, which may be a combination of atypical pneumonia and chronic interstitial lilian ng disea
--- NOTE | ~2022-07-26 | CT_ITS ---
EXAMINATION: CT cervical spine wo con DATE: 07/26/2022 14:42 INDICATION: Neck injury. TECHNIQUE: Computed tomography (CT) of the cervical spine was performed without intravenous contrast. Automated exposure control and iterative reconstruction technique were employed. The dose-length pro duct was 681.00 mGy-cm. COMPARISON: None FINDINGS: There is 8 degrees levocurvature of cervical spine. There is 2 mm anterolisthesis of C5 on C6 and C6 on C7. Vertebral body heights are normal. There is severely decreased disc height at C3-C4 and C4-C5, mildly decreased disc height at C5-C6, and moderately decreased disc height at C7-T1. The following disc levels are specifically discussed: C2-C3: There is severe right and mild left uncovertebral joint osteoarthritis. There is severe right and moderate left facet joint osteoarthritis. There is mild right neural foraminal stenosis. There is no central canal stenosis. C3-C4: There is severe bilateral uncovertebral joint osteoarthritis. There is severe bilateral facet joint osteoarthritis. There is mild bilateral neural foraminal stenosis. There is mild central canal stenosis. C4-C5: There is severe bilateral uncovertebral joint osteoarthritis. There is severe bilateral facet joint osteoarthritis. There is moderate right and mild left neural foraminal stenosis. There is mild central canal stenosis. C5-C6: There is severe bilateral uncovertebral joint osteoarthritis. There is severe bilateral facet joint osteoarthritis. There is moderate right and mild left neural foraminal stenosis. There is no ce ntral canal stenosis. C6-C7: There is no uncovertebral joint osteoarthritis. There is severe bilateral facet joint osteoart hritis. There is mild bilateral neural foraminal stenosis. There is no central canal stenosis. C7-T1: There is severe bilateral uncovertebral joint osteoarthritis. There is severe right and mild l eft facet joint osteoarthritis. There is mild right neural foraminal stenosis. There is no central ca nal stenosis. IMPRESSION: 1. No fracture. 2. Severe cervical spondylosis. Reviewed, dictated and finalized at location A. TROUBLE SHOOTER
--- NOTE | ~2022-07-26 | XR_ITS ---
EXAMINATION: XR knee RT 3V DATE: 07/26/2022 14:49 INDICATION: Right knee pain. Fall. TECHNIQUE: 3 views of right knee were obtained. COMPARISON: Right knee radiographs 12/27/2006 FINDINGS: There is a total right knee arthroplasty with patellar resurfacing in near-anatomic alignme nt. No fracture. No periprosthetic lucency to suggest loosening or infection. There is a small knee j oint effusion. IMPRESSION: 1. Total right knee arthroplasty in near-anatomic alignment. 2. Small right knee joint effusion. Reviewed, dictated and finalized at location A. E WRITER
--- NOTE | ~2022-07-26 | CT_ITS ---
EXAMINATION: CT brain wo con DATE: 07/26/2022 14:42 INDICATION: Status post fall. Head injury. Atrial fibrillation. CHF. TECHNIQUE: Computed tomography (CT) of the head was performed without intravenous contrast. The dose- length product was 681.00 mGy-cm. Automated exposure control and iterative reconstruction technique w ere employed. COMPARISON: CT dated 07/18/2021 FINDINGS: Generalized atrophy. There are scattered moderate periventricular and subcortical white mat ter changes, most likely related to small vessel ischemic disease (microangiopathy). No ventriculomeg shannon or midline shift. There is mucosal thickening of the left maxillary and ethmoid sinuses. Mastoids are pneumatized. No depressed skull fractures. Midline sagittal images are unremarkable. There is in tracranial atherosclerosis. There is asymmetric atrophy of the left hemisphere compared to the right with prominence of the overlying sulci. IMPRESSION: 1. No acute intracranial abnormality. 2: Chronic age-related findings. Reviewed, dictated and finalized at location B. [facility]
--- NOTE | 2022-07-26 13:28 | ED.FALL ---
HPI - Fall General Chief Complaint: Fall Stated Complaint: Fall - Right hip pain, COVID + Time Seen by Provider: 07/26/22 12:09 History of Present Illness HPI Narrative: Patient is an 81-year-old male with a history of diabetes, hypertension, hyperlipidemia, CHF, dementia, A-fib status post Watchman procedure presenting after multiple falls. Patient's daughter is primary historian. She states that he was recently admitted to [facility] for pneumonia. [facility] for the last week or so. She states that he has had multiple falls out of bed. States that recently they lowered his bed and put pads on the side but he again had another fall. He was apparently complaining of right hip pain which he denies to me. He complains of left-sided abdominal pain and right knee pain. Patient's daughter reports that he has been refusing to eat or drink but it sounds like he has been taking his meds with some pudding each day. No reported fevers, vomiting, diarrhea, cough. Patient denies headache, chest pain, shortness of breath, nausea. Related Data Home Medications Medication Instructions Recorded Confirmed albuterol sulfate 90 mcg/actuation 2 puff inhalation Q6H PRN 07/18/21 07/26/22 aerosol inhaler (Ventolin HFA) Shortness Of Breath allopurinol 300 mg tablet 300 mg PO DAILY 07/18/21 07/26/22 atorvastatin 40 mg tablet 40 mg PO HS 07/18/21 07/26/22 furosemide 40 mg tablet 40 mg PO BID 07/18/21 07/26/22 isosorbide mononitrate 30 mg 30 mg PO DAILY 07/18/21 07/26/22 tablet,extended release 24 hr lisinopril 10 mg tablet 10 mg PO DAILY 07/18/21 07/26/22 metformin 1,000 mg tablet 500 mg PO BID 07/18/21 07/26/22 metoprolol succinate 25 mg 25 mg PO DAILY 07/18/21 07/26/22 tablet,extended release 24 hr pantoprazole 40 mg tablet,delayed 40 mg PO BID 07/18/21 07/26/22 release potassium chloride 10 mEq 40 meq PO DAILY 07/18/21 07/26/22 tablet,extended release sertraline 50 mg tablet 50 mg PO DAILY 07/18/21 07/26/22 sitagliptin phosphate 100 mg 100 mg PO DAILY 07/18/21 07/26/22 tablet (Januvia) tramadol 50 mg tablet 100 mg PO TID 07/18/21 07/26/22 acetaminophen 650 mg 1,300 mg PO Q8H PRN Pain 07/26/22 07/26/22 tablet,extended release amiodarone 200 mg tablet 200 mg PO DAILY 07/26/22 07/26/22 ascorbic acid (vitamin C) 500 mg 500 mg PO BID 07/26/22 07/26/22 tablet benzonatate 100 mg capsule 100 mg PO TID PRN Cough 07/26/22 07/26/22 bisacodyl 10 mg rectal suppository 10 mg RECTAL DAILY PRN Constipation 07/26/22 07/26/22 cetirizine 10 mg tablet 10 mg PO DAILY 07/26/22 07/26/22 guaifenesin 600 mg tablet, 600 mg PO Q12H 07/26/22 07/26/22 extended release 12 hr magnesium citrate (Citroma oral 300 ml PO DAILY PRN Constipation 07/26/22 07/26/22 solution) magnesium hydroxide 400 mg/5 mL 30 ml PO HS PRN Constipation 07/26/22 07/26/22 oral suspension (Milk of Magnesia) sodium phosphates 19 gram-7 118 ml RECTAL DAILY PRN 07/26/22 07/26/22 gram/118 mL enema (Fleet Enema) Constipation Allergies Allergy/AdvReac Type Severity Reaction Status Date / Time morphine Allergy Mild SWELLING Verified 07/26/22 18:09 Review of Systems Review of Systems: All systems reviewed & are unremarkable except as noted in HPI and below PMFSH Past Medical History Medical History (Updated 07/28/22 @ 21:31 by Kassie Cardenas MD) Atrial fibrillation Chronic renal failure, stage 3 (moderate) Dementia Diabetes mellitus Dyslipidemia Hypertension LIBIA (obstructive sleep apnea) Presence of Watchman left atrial appendage closure device Prostate CA 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
[2022-07-26] MEDS: SODIUM CHLORIDE 0.9% IV 1,000 ML 999 ML IV CONT ×2 (13:43→14:53)
[2022-07-26 13:54] LABS: Basophils Percent Auto 0.2 % (0.2-1.2); Eosinophils Percent Auto 0.3 % (0-4.4); Hematocrit 38.6 % (42.0-52.0); Hemoglobin 12.4 g/dL (14.0-18.0); Immature Granulocyte Absolute 0.11 K/mm3 (0.00-0.031); Immature Granulocyte Percent A 0.9 % (0-0.5); Lymphocytes Absolute Auto 1.14 K/mm3 (0.9-3.2); Lymphocytes Percent Auto 9.4 % (18.3-44.2); Mean Corpuscular HGB Conc 32.1 g/dl (32-36); Mean Corpuscular Hemoglobin 26.2 pg (26-34); Mean Corpuscular Volume 81.4 fl (80-100); Mean Platelet Volume 9.9 fl (7.4-10.4); Monocytes Absolute Auto 1.3 K/mm3 (0.1-0.6); Monocytes Percent Auto 10.8 % (2.6-8.5); Neutrophils Absolute Auto 9.5 K/mm3 (1.3-6.7); Neutrophils Percent Auto 78.4 % (45.5-73.1); Platelet Count Result 234 k/mm3 (150-375); Red Blood Count 4.74 M/mm3 (4.6-6.20); Red Cell Distribution Width 16.3 % (11.5-14.5); White Blood Count 12.2 K/mm3 (4.5-10.0)
[2022-07-26 14:03] LABS: Alanine Aminotransferase 22 U/L (6-50); Albumin Level 3.9 g/dL (3.5-5.1); Alkaline Phosphatase 56 U/L (38-126); Anion Gap 11 mmol/L (8-16); Aspartate Amino Transferase 47 U/L (17-59); Blood Urea Nitrogen 39 mg/dL (9-20); Carbon Dioxide 24 mmol/L (22-30); Chloride 94 mmol/L (98-107); Estimated CRCL calculation 56 ml/min; Estimated Glomerular Filt Rate > 60; Glucose 159 mg/dL (65-110); Potassium 3.8 mmol/L (3.4-5.0); Sodium 129 mmol/L (137-145)
[2022-07-26 14:21] LABS: Appearance Urine Clear (Clear); Bacteria Urine 1+ /hpf; Bilirubin Urine Negative (Negative); Blood Urine 3+ (Negative); Color Urine Yellow (Yellow); Glucose Urine UA Negative (Negative); Granular Casts Urine Present /lpf; Ketones Urine Trace mg/dL (Negative); Leukocyte Esterase Ur 2+ LEU/UL (Negative); Nitrate Urine Negative (Negative); Protein Urine 2+ mg/dL (Negative); RBC Urine >100 /hpf (0-2); Specific Grav Ur 1.014 (1.001-1.035); Squamous Epithelial Cell Urine Occasional /hpf (Few); pH Urine 5.5 (5.0-9.0)
[2022-07-26 14:40] LABS: Add Urine Microscopic? YES
[2022-07-26] MEDS: CEPHALEXIN 500 MG CAPSULE PO (16:48)
--- NOTE | 2022-07-26 17:28 | PM.IMHP ---
H&P: HPI History of Present Illness Date/Time: 07/26/22 17:28 Chief Complaint: Fall Narrative: This is an 81-year-old male patient [facility] However he has not been eating or drinking or taking his medication. He has had multiple falls at the facility. The is feeling uncomfortable with the patient falling. She stated that his bed is low to the ground and thinks that he just wheezes into the ground and does not fall. He has a history of diabetes, hypertension, hyperlipidemia CHF, AFib and dementia. The patient does have a watchman's device for his atrial fibrillation and is not on any anticoagulation. Sodium is 120 neck which is typically 136. His glucose is 159. The patient has a history of sun downers as well. The patient was found have a UTI. Patient's chest abdominal pelvis CT was read as1. Diffuse lung disease, which may be a combination of atypical pneumonia and chronic interstitial lung disease. 2. Large sliding hiatal hernia. 3. Mild mediastinal lymphadenopathy, likely reactive. 4. Distended gallbladder, which may be secondary to fasting. 5. Bilateral renal artery stenosis. 6. Moderate thoracic spondylosis and severe lumbar spondylosis. 7. Posterior fusion procedure from T10 to L2. Anterior fusion procedure from T12 to L2. Knee x-ray was read as the following. Total right knee arthroplasty in near-anatomic alignment. 2. Small right knee joint effusion. Cervical spine CT No fracture. 2. Severe cervical spondylosis . Head CT was read as no acute intracranial abnormality. Chronic age-related findings. The patient was started on Keflex as there was a possibility that the patient will be discharged. He was also given Tylenol and IV fluids. The patient's blood pressure was soft 90s over 50s and he had a white count of 12.2. His H&H was 12.4 and 38.6. It was felt that the patient was dehydrated and needed to be admitted overnight for IV fluids and antibiotics. The patient is being admitted to observation on the date of service of 07/26/2022 Review of Systems Review of Systems: See HPI All systems reviewed & are unremarkable except as noted in HPI and below Constitutional: Constitutional: Reports as per HPI and Reports no additional constitutional complaints Eyes: Eyes: Reports as per HPI and Reports no additional eye complaints ENT: Reports system reviewed and no additional complaints, except as documented and Reports Normal hearing present Cardiovascular: Cardiovascular: Reports no additional cardiovascular complaints Respiratory: Respiratory: Reports no additional respiratory complaints and Reports no additional respiratory complaints Gastrointestinal: Gastrointestinal: Reports as per HPI and Reports no additional gastrointestinal complaints Musculoskeletal: Musculoskeletal: Reports no additional musculoskeletal complaints Integumentary/Breasts: Skin/Breast: Reports system reviewed and no additional complaints, except as docu and Reports as per HPI Neurologic: Reports system reviewed and no additional complaints, except as documented, Reports as per HPI and Reports Normal hearing present Psychiatric: Psychiatric: Reports no additional psychiatric complaints and Reports as per HPI Endocrine: Endocrine: Reports no additional endocrine complaints Hematologic/Lymphatic: Hematologic/Lymphatic: Reports no additional hematologic/lymphatic complaints Allergic/Immunologic: Allergic/Immunologic: Reports no additional allergic/immunologic complaints [facility] Past Medical History Medical History (Updated 07/27/22 @ 00:39 by Vaenssa Fontaine, DHRUV) Atrial fibrillation Chronic renal failure, stage 3 (moderate) Dementia Diabetes mellitus Dyslipidemia Hypertension LIBIA (obstructive sleep apnea) Presence of Watchman left atrial appendage closure device Prostate CA 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
--- NOTE | 2022-07-26 18:07 | ADMGEN ---
This patient, Jesus Landis, was admitted to Medical Room 244-. Patient/family oriented to hospital policies and general routines including ID bracelet, bed and alarms, visiting hours, pain management, procedures, bathroom and other care routines, personal items, smoking policy, room service/diet, and visiting hours. Information on how to activate the Rapid Response Team has been discussed. Patient/Family are encouraged to report perceived risks to care and to ask questions if they do not understand what they are told or what they should do.
[2022-07-27] VITALS (13 sets, daily range): BP systolic 110–116; BP diastolic 52–61; PULSE 64–79; RESP 14–16; TEMP 36.6–36.7; O2SAT 97–98; BMI 36.0
[2022-07-27 05:51] LABS: Basophils Percent Auto 0.3 % (0.2-1.2); Eosinophils Absolute Auto 0.2 K/mm3 (0-0.3); Eosinophils Percent Auto 1.5 % (0-4.4); Hemoglobin 11.5 g/dL (14.0-18.0); Immature Granulocyte Absolute 0.07 K/mm3 (0.00-0.031); Immature Granulocyte Percent A 0.7 % (0-0.5); Lymphocytes Absolute Auto 0.97 K/mm3 (0.9-3.2); Lymphocytes Percent Auto 9.9 % (18.3-44.2); Mean Corpuscular HGB Conc 30.3 g/dl (32-36); Mean Corpuscular Volume 85.8 fl (80-100); Monocytes Percent Auto 9.9 % (2.6-8.5); Neutrophils Absolute Auto 7.6 K/mm3 (1.3-6.7); Neutrophils Percent Auto 77.7 % (45.5-73.1); Platelet Count Result 195 k/mm3 (150-375); Red Blood Count 4.43 M/mm3 (4.6-6.20); Red Cell Distribution Width 16.7 % (11.5-14.5); White Blood Count 9.8 K/mm3 (4.5-10.0)
[2022-07-27 06:05] LABS: Sodium 134 mmol/L (137-145)
[2022-07-27 06:15] LABS: Alanine Aminotransferase 19 U/L (6-50); Albumin Level 3.5 g/dL (3.5-5.1); Alkaline Phosphatase 52 U/L (38-126); Anion Gap 9 mmol/L (8-16); Aspartate Amino Transferase 38 U/L (17-59); Bilirubin,Total 0.8 mg/dL (0.2-1.3); Blood Urea Nitrogen 33 mg/dL (9-20); Calcium 8.8 mg/dL (8.4-10.2); Carbon Dioxide 23 mmol/L (22-30); Chloride 102 mmol/L (98-107); Estimated CRCL calculation 69 ml/min; Estimated Glomerular Filt Rate > 60; Glucose 123 mg/dL (65-110); Lipase 368 U/L (23-300); Magnesium 1.9 mg/dL (1.6-2.3); Potassium 3.7 mmol/L (3.4-5.0)
[2022-07-27 06:53] LABS: Influenza A QL RT-PCR Negative (Negative); Influenza B QL RT-PCR Negative (Negative); RSV RNA, RT-PCR Negative (Negative); SARS-CoV-2 RNA PCR Positive
[2022-07-27] MEDS: ASCORBIC ACID 500 MG TABLET PO (09:10)
[2022-07-27] MEDS: ISOSORBIDE MONONITRATE 30 MG TAB.ER.24H PO (09:10)
[2022-07-27] MEDS: METOPROLOL SUCCINATE EXT REL 25 MG TABCR PO (09:10)
[2022-07-27] MEDS: ASPIRIN 81 MG CHEWABLE TABLET PO (09:12)
[2022-07-27] MEDS: SERTRALINE HCL 50 MG TABLET PO (09:12)
[2022-07-27] MEDS: lisinopriL 10 MG TABLET PO (09:12)
[2022-07-27] MEDS: PANTOPRAZOLE 40 MG TABLET PO (09:12)
[2022-07-27] MEDS: allopurinoL 300 MG TABLET PO (09:12)
[2022-07-27] MEDS: AMIODARONE HCL 200 MG TABLET PO (09:12)
[2022-07-27] MEDS: FUROSEMIDE 40 MG TABLET PO (09:12)
[2022-07-27] MEDS: POTASSIUM CHLORIDE 10 MEQ TABLET.ER 40 MEQ PO (09:13)
[2022-07-27] MEDS: traMADol HCL (*CRX) 50 MG TABLET 100 MG PO (09:15)
--- NOTE | 2022-07-27 10:58 | PCOTNOTE ---
Attempted to see pt. for occupational therapy evaluation. Nursing requests waiting on evaluation due to pt.'s recent agitation and behavioral issues, and is now sleeping soundly. Per care coordination, hospice is also being consulted. Following.
--- NOTE | 2022-07-27 12:45 | PM.IMPN ---
Progress Note: A&P Assessment and Plan (1) UTI (urinary tract infection): Code(s): N39.0 - Urinary tract infection, site not specified Status: Acute Assessment and Plan: UA appears infectious Awaiting urine cultures Continue ceftriaxone day 2 Tailor antibiotics to urine culture (2) COVID: Code(s): U07.1 - COVID-19 Status: Acute Assessment and Plan: [facility] Positive here on 07/27/22 On room air No indication for respiratory distress at this time No indication for further treatment at this time (3) Chronic renal failure, stage 3 (moderate): Code(s): N18.30 - Chronic kidney disease, stage 3 unspecified Status: Acute Assessment and Plan: BUN/Cr 33/0.90 GFR is stable at this time Baseline creatinine is 0.90 Continue to trend lab Avoid nephrotoxic medications (4) Dementia: Code(s): F03.90 - Unspecified dementia, unspecified severity, without behavioral disturbance, psychotic disturbance, mood disturbance, and anxiety Status: Acute Assessment and Plan: History of Dementia Will most likely need placement Hospice is in consideration Continue home medications (5) Atrial fibrillation: Code(s): I48.91 - Unspecified atrial fibrillation Status: Acute Assessment and Plan: History of watchman's device. Continue with p.o. amiodarone Not taking any medication most likely related to dementia status No anticoagulation at this time due to frequent falls (6) LIBIA (obstructive sleep apnea): Code(s): G47.33 - Obstructive sleep apnea (adult) (pediatric) Status: Acute Assessment and Plan: Home settings for BiPAP/CPAP (7) Hypertension: Code(s): I10 - Essential (primary) hypertension Status: Acute Assessment and Plan: Current 116/61 Continue home lisinopril, metoprolol, amiodarone, isosorbide Trend BP adjust therapy at this time (8) Diabetes mellitus: Code(s): E11.9 - Type 2 diabetes mellitus without complications Status: Acute Assessment and Plan: Glucose 123 Holding metformin Continue with Januvia Accu-Cheks AC and HS hypoglycemic protocol A1c ordered for the am (9) Dyslipidemia: Code(s): E78.5 - Hyperlipidemia, unspecified Status: Acute Assessment and Plan: Continue with atorvastatin Plan Spoke with the in great detail about the patient's condition. We did talk about the next steps. Patient's stated that she could not take him home the way he is in that it is just too much for him. She also stated that she can not afford to place him for further care. Patient was presented both sides of the fence including treatment and care and hospice. Time Spent With Patient Time: 56 minutes Subjective Date/time seen: 07/27/22 1245 Interval history: 07/27/22 1245 Patient seems to be a bit confused. Patient stated that nobody wants him anymore. He denies any chest pain, shortness a breath, nausea, vomiting, diarrhea or constipation. He does seem to be a bit more confused than normal. 07/26/22? 17:28 This is an 81-year-old male patient who is currently in [facility].? However he has not been eating or drinking or taking his medication.? He has had multiple falls at the facility.? The is feeling uncomfortable with the patient falling.? She stated that his bed is low to the ground and thinks that he just wheezes into the ground and does not fall.? He has a history of diabetes, hypertension, hyperlipidemia CHF, AFib and dementia.? The patient does have a watchman's device for his atrial fibrillation and is not on any anticoagulation.? Sodium is 120 neck which is typically 136.? His glucose is 159.? The patient has a hist
--- NOTE | 2022-07-27 12:45 | P.PNIM_ITS ---
Progress Note: A&P Assessment and Plan (1) UTI (urinary tract infection): Code(s): N39.0 - Urinary tract infection, site not specified Status: Acute Assessment and Plan: * UA appears infectious * Awaiting urine cultures * Continue ceftriaxone day 2 * Tailor antibiotics to urine culture (2) COVID: Code(s): U07.1 - COVID-19 Status: Acute Assessment and Plan: * [facility]ed [facility] * Positive here on 07/27/22 * On room air * No indication for respiratory distress at this time * No indication for further treatment at this time (3) Chronic renal failure, stage 3 (moderate): Code(s): N18.30 - Chronic kidney disease, stage 3 unspecified Status: Acute Assessment and Plan: * BUN/Cr 33/0.90 * GFR is stable at this time * Baseline creatinine is 0.90 * Continue to trend lab * Avoid nephrotoxic medications (4) Dementia: Code(s): F03.90 - Unspecified dementia, unspecified severity, without behavioral disturbance, psychotic disturbance, mood disturbance, and anxiety Status: Acute Assessment and Plan: * History of Dementia * Will most likely need placement * Hospice is in consideration * Continue home medications (5) Atrial fibrillation: Code(s): I48.91 - Unspecified atrial fibrillation Status: Acute Assessment and Plan: * History of watchman's device. * Continue with p.o. amiodarone * Not taking any medication most likely related to dementia status * No anticoagulation at this time due to frequent falls (6) LIBIA (obstructive sleep apnea): Code(s): G47.33 - Obstructive sleep apnea (adult) (pediatric) Status: Acute Assessment and Plan: * Home settings for BiPAP/CPAP (7) Hypertension: Code(s): I10 - Essential (primary) hypertension Status: Acute Assessment and Plan: * Current 116/61 * Continue home lisinopril, metoprolol, amiodarone, isosorbide * Trend BP * adjust therapy at this time (8) Diabetes mellitus: Code(s): E11.9 - Type 2 diabetes mellitus without complications Status: Acute Assessment and Plan: * Glucose 123 * Holding metformin * Continue with Januvia * Accu-Cheks AC and HS * hypoglycemic protocol * A1c ordered for the am (9) Dyslipidemia: Code(s): E78.5 - Hyperlipidemia, unspecified Status: Acute Assessment and Plan: * Continue with atorvastatin Plan Spoke with the in great detail about the patient's condition. We did talk about the next steps. Patient's stated that she could not take him home the way he is in that it is just too much for him. She also stated that she can not afford to place him for further care. Patient was presented both sides of the fence including treatment and care and hospice. Time Spent With Patient Time: 56 minutes Subjective Date/time seen: 07/27/221244 Interval history: 07/27/221244 Patient seems to be a bit confused. Patient stated that nobody wants him anymore. He denies any chest pain, shortness a breath,
[2022-07-27] MEDS: ACETAMINOPHEN 500 MG TABLET 1000 MG PO (22:39)
[2022-07-28] VITALS (9 sets, daily range): BP systolic 102–123; BP diastolic 53–61; PULSE 60–79; RESP 16–18; TEMP 36.3–36.6; O2SAT 93–96
[2022-07-28] MEDS: HALOPERIDOL LACTATE 5 MG/ML VIAL IM (03:28)
[2022-07-28 04:57] LABS: Basophils Percent Auto 0.4 % (0.2-1.2); Eosinophils Absolute Auto 0.1 K/mm3 (0-0.3); Eosinophils Percent Auto 1.7 % (0-4.4); Hematocrit 37.6 % (42.0-52.0); Hemoglobin 11.5 g/dL (14.0-18.0); Immature Granulocyte Absolute 0.09 K/mm3 (0.00-0.031); Immature Granulocyte Percent A 1.1 % (0-0.5); Lymphocytes Absolute Auto 0.91 K/mm3 (0.9-3.2); Lymphocytes Percent Auto 10.7 % (18.3-44.2); Mean Corpuscular HGB Conc 30.6 g/dl (32-36); Mean Corpuscular Hemoglobin 26.3 pg (26-34); Mean Corpuscular Volume 85.8 fl (80-100); Mean Platelet Volume 9.9 fl (7.4-10.4); Monocytes Percent Auto 11.2 % (2.6-8.5); Neutrophils Absolute Auto 6.4 K/mm3 (1.3-6.7); Neutrophils Percent Auto 74.9 % (45.5-73.1); Platelet Count Result 213 k/mm3 (150-375); Red Blood Count 4.38 M/mm3 (4.6-6.20); Red Cell Distribution Width 16.7 % (11.5-14.5); White Blood Count 8.5 K/mm3 (4.5-10.0)
[2022-07-28 05:26] LABS: Alanine Aminotransferase 18 U/L (6-50); Albumin Level 3.6 g/dL (3.5-5.1); Alkaline Phosphatase 50 U/L (38-126); Anion Gap 10 mmol/L (8-16); Aspartate Amino Transferase 35 U/L (17-59); Bilirubin,Total 0.9 mg/dL (0.2-1.3); Blood Urea Nitrogen 22 mg/dL (9-20); Carbon Dioxide 22 mmol/L (22-30); Chloride 99 mmol/L (98-107); Estimated CRCL calculation 87 ml/min; Estimated Glomerular Filt Rate > 60; Glucose 123 mg/dL (65-110); Magnesium 1.7 mg/dL (1.6-2.3); Potassium 3.5 mmol/L (3.4-5.0); Sodium 131 mmol/L (137-145)
[2022-07-28] MEDS: ACETAMINOPHEN 500 MG TABLET 1000 MG PO (05:59)
[2022-07-28] MEDS: MAGNESIUM SULF 4 GM/WATER100ML 4 GM/100 ML BAG IVPB (08:49)
[2022-07-28] MEDS: ASPIRIN 81 MG CHEWABLE TABLET PO (08:53)
[2022-07-28] MEDS: lisinopriL 10 MG TABLET PO (08:54)
[2022-07-28] MEDS: METOPROLOL SUCCINATE EXT REL 25 MG TABCR PO (08:54)
[2022-07-28] MEDS: POTASSIUM CHLORIDE 10 MEQ TABLET.ER 40 MEQ PO (08:55)
[2022-07-28] MEDS: SERTRALINE HCL 50 MG TABLET PO (08:55)
[2022-07-28] MEDS: ISOSORBIDE MONONITRATE 30 MG TAB.ER.24H PO (08:55)
[2022-07-28] MEDS: AMIODARONE HCL 200 MG TABLET PO (08:55)
[2022-07-28] MEDS: FUROSEMIDE 40 MG TABLET PO ×2 (08:55→16:51)
[2022-07-28] MEDS: ASCORBIC ACID 500 MG TABLET PO ×2 (08:58→16:51)
[2022-07-28] MEDS: allopurinoL 300 MG TABLET PO (08:58)
[2022-07-28] MEDS: PANTOPRAZOLE 40 MG TABLET PO ×2 (08:59→16:51)
[2022-07-28] MEDS: traMADol HCL (*CRX) 50 MG TABLET 100 MG PO ×3 (09:15→16:51)
--- NOTE | 2022-07-28 10:00 | PM.IMPN ---
Progress Note: A&P Assessment and Plan (1) UTI (urinary tract infection): Code(s): N39.0 - Urinary tract infection, site not specified Status: Acute Assessment and Plan: UA appears infectious Urine culture grew enterococcus Change ceftriaxone to Vancomycin Will await sensitivities Will most likely need IV antibiotics for 10 days (2) COVID: Code(s): U07.1 - COVID-19 Status: Acute Assessment and Plan: Tested positive at [facility] Positive here on 07/27/22 On room air No indication for respiratory distress at this time No indication for further treatment at this time (3) Chronic renal failure, stage 3 (moderate): Code(s): N18.30 - Chronic kidney disease, stage 3 unspecified Status: Acute Assessment and Plan: BUN/Cr 22/0.70 GFR is stable at this time Baseline creatinine is 0.90 Continue to trend lab Avoid nephrotoxic medications Stable (4) Dementia: Code(s): F03.90 - Unspecified dementia, unspecified severity, without behavioral disturbance, psychotic disturbance, mood disturbance, and anxiety Status: Acute Assessment and Plan: History of Dementia Will most likely need placement Hospice is in consideration Continue home medications Will need medicaid pending bed (5) Atrial fibrillation: Code(s): I48.91 - Unspecified atrial fibrillation Status: Acute Assessment and Plan: History of watchman's device. Continue with p.o. amiodarone Not taking any medication most likely related to dementia status No anticoagulation at this time due to frequent falls Ok to DC tele at this time. (6) LIBIA (obstructive sleep apnea): Code(s): G47.33 - Obstructive sleep apnea (adult) (pediatric) Status: Acute Assessment and Plan: Home settings for BiPAP/CPAP (7) Hypertension: Code(s): I10 - Essential (primary) hypertension Status: Acute Assessment and Plan: Current 114/57 Continue home lisinopril, metoprolol, amiodarone, isosorbide Trend BP adjust therapy at this time (8) Diabetes mellitus: Code(s): E11.9 - Type 2 diabetes mellitus without complications Status: Acute Assessment and Plan: Glucose 123 Holding metformin Continue with Januvia Accu-Cheks AC and HS hypoglycemic protocol A1c (9) Dyslipidemia: Code(s): E78.5 - Hyperlipidemia, unspecified Status: Acute Assessment and Plan: Continue with atorvastatin Time Spent With Patient Time: 54 minutes Subjective Date/time seen: 07/28/22 1000 Interval history: 07/28/22 1000 Patient is crabby today. He is really upset because he wants to get up. Was able to get him to a chair. He did take about 3 steps. Walker and gait belt used. He did state that he does better without the walker. He denies any chest pain, shortness of breath, nausea, vomiting, diarrhea, or constipation. He is eating ok. Tele showed afib without any ectopy. Tele can be DC'd at this time. 07/27/22 1245 Patient seems to be a bit confused. Patient stated that nobody wants him anymore. He denies any chest pain, shortness a breath, nausea, vomiting, diarrhea or constipation. He does seem to be a bit more confused than normal. 07/26/22? 17:28 This is an 81-year-old male patient who is currently in [facility].? However he has not been eating or drinking or taking his medication.? He has had multiple falls at the facility.? The is feeling uncomfortable with the patient falling.? She stated that his bed is low to the ground and thinks that he just wheezes into the ground and does not fall.? He has a history of diabetes, hypertension, hyperlipidemia CHF, AFib and dementia.? The patient does have a watchman's device for
--- NOTE | 2022-07-28 10:00 | P.PNIM_ITS ---
Progress Note: A&P Assessment and Plan (1) UTI (urinary tract infection): Code(s): N39.0 - Urinary tract infection, site not specified Status: Acute Assessment and Plan: * UA appears infectious * Urine culture grew enterococcus * Change ceftriaxone to Vancomycin * Will await sensitivities * Will most likely need IV antibiotics for 10 days (2) COVID: Code(s): U07.1 - COVID-19 Status: Acute Assessment and Plan: * [facility] * Positive here on 07/27/22 * On room air * No indication for respiratory distress at this time * No indication for further treatment at this time (3) Chronic renal failure, stage 3 (moderate): Code(s): N18.30 - Chronic kidney disease, stage 3 unspecified Status: Acute Assessment and Plan: * BUN/Cr 22/0.70 * GFR is stable at this time * Baseline creatinine is 0.90 * Continue to trend lab * Avoid nephrotoxic medications * Stable (4) Dementia: Code(s): F03.90 - Unspecified dementia, unspecified severity, without behavioral disturbance, psychotic disturbance, mood disturbance, and anxiety Status: Acute Assessment and Plan: * History of Dementia * Will most likely need placement * Hospice is in consideration * Continue home medications * Will need medicaid pending bed (5) Atrial fibrillation: Code(s): I48.91 - Unspecified atrial fibrillation Status: Acute Assessment and Plan: * History of watchman's device. * Continue with p.o. amiodarone * Not taking any medication most likely related to dementia status * No anticoagulation at this time due to frequent falls * Ok to DC tele at this time. (6) LIBIA (obstructive sleep apnea): Code(s): G47.33 - Obstructive sleep apnea (adult) (pediatric) Status: Acute Assessment and Plan: * Home settings for BiPAP/CPAP (7) Hypertension: Code(s): I10 - Essential (primary) hypertension Status: Acute Assessment and Plan: * Current 114/57 * Continue home lisinopril, metoprolol, amiodarone, isosorbide * Trend BP * adjust therapy at this time (8) Diabetes mellitus: Code(s): E11.9 - Type 2 diabetes mellitus without complications Status: Acute Assessment and Plan: * Glucose 123 * Holding metformin * Continue with Januvia * Accu-Cheks AC and HS * hypoglycemic protocol * A1c (9) Dyslipidemia: Code(s): E78.5 - Hyperlipidemia, unspecified Status: Acute Assessment and Plan: * Continue with atorvastatin Time Spent With Patient Time: 54 minutes Subjective Date/time seen: 07/28/22 1000 Interval history: 07/28/22999 Patient is crabby today. He is really upset because he wants to get up. Was able to get him to a chair. He did take about 3 steps. Walker and gait belt used. He did state that he does better without the walker. He denies any chest pain, shortness of breath, nausea, vomiting, diarrhea, or constipation. He is eating ok. Tele showed afib without any ectopy. Tele can be DC'd at this time
[2022-07-28 12:14] LABS: Hemoglobin A1C 7.5 % (<5.7)
--- NOTE | 2022-07-28 12:30 | PCOTNOTE ---
Attempted to see patient OT evaluation this afternoon. Patient agitated not following commands. Nurse and aid report the patient was in the recliner earlier and continuously tries to get himself out of the recliner, almost falling on the floor. The patient is not appropriate for OT evaluation at this time. Called DHRUV Padgett, who still recommends OT evaluation. Will continue to attempt as able.
--- NOTE | 2022-07-28 13:57 | PCPTNOTE ---
Spoke with RN Lida prior to attempted physical therapy evaluation. Per RN, pt is not able to follow directions, is frequently agitated and impulsive. The patient is not appropriate for PT evaluation at this time. Will continue to follow.
[2022-07-28] MEDS: LORazepam (*CRX) 0.5 MG TABLET PO ×2 (14:35→22:02)
[2022-07-28 16:49] LABS: Glucose Point of Care 154 mg/dl (65-105)
[2022-07-28] MEDS: AMPICILLIN 2 GM/NS 100 ML 2 GM/100 ML BAG IVPB ×2 (16:52→22:02)
[2022-07-28] MEDS: ATORVASTATIN 40 MG TABLET PO (22:02)
[2022-07-29] VITALS (8 sets, daily range): BP systolic 117–122; BP diastolic 68–74; PULSE 68–87; RESP 18; TEMP 36.2; O2SAT 95–97
[2022-07-29] MEDS: AMPICILLIN 2 GM/NS 100 ML 2 GM/100 ML BAG IVPB ×4 (04:10→22:04)
[2022-07-29 05:37] LABS: Estimated CRCL calculation 87 ml/min; Estimated Glomerular Filt Rate > 60
[2022-07-29] MEDS: allopurinoL 300 MG TABLET PO (07:56)
[2022-07-29] MEDS: POTASSIUM CHLORIDE 10 MEQ TABLET.ER 40 MEQ PO (07:56)
[2022-07-29] MEDS: PANTOPRAZOLE 40 MG TABLET PO ×2 (07:56→16:28)
[2022-07-29] MEDS: AMIODARONE HCL 200 MG TABLET PO (07:57)
[2022-07-29] MEDS: ISOSORBIDE MONONITRATE 30 MG TAB.ER.24H PO (07:59)
[2022-07-29] MEDS: ASPIRIN 81 MG CHEWABLE TABLET PO (07:59)
[2022-07-29] MEDS: METOPROLOL SUCCINATE EXT REL 25 MG TABCR PO (07:59)
[2022-07-29] MEDS: lisinopriL 10 MG TABLET PO (07:59)
[2022-07-29] MEDS: FUROSEMIDE 40 MG TABLET PO ×2 (07:59→16:28)
[2022-07-29] MEDS: SERTRALINE HCL 50 MG TABLET PO (07:59)
[2022-07-29] MEDS: ASCORBIC ACID 500 MG TABLET PO ×2 (07:59→16:28)
[2022-07-29] MEDS: traMADol HCL (*CRX) 50 MG TABLET 100 MG PO ×2 (08:03→16:28)
--- NOTE | 2022-07-29 11:15 | PM.IMPN ---
Progress Note: A&P Assessment and Plan (1) UTI (urinary tract infection): Code(s): N39.0 - Urinary tract infection, site not specified Status: Acute Assessment and Plan: UA appears infectious Urine culture grew enterococcus Change Vancomycin to ampicillin per sensitivities Will most likely need IV antibiotics for 10 days (2) COVID: Code(s): U07.1 - COVID-19 Status: Acute Assessment and Plan: Tested positive at [facility] Positive here on 07/27/22 On room air No indication for respiratory distress at this time No indication for further treatment at this time (3) Chronic renal failure, stage 3 (moderate): Code(s): N18.30 - Chronic kidney disease, stage 3 unspecified Status: Acute Assessment and Plan: BUN/Cr 22/0.70 07/28/22 GFR is stable at this time Baseline creatinine is 0.90 Continue to trend lab Avoid nephrotoxic medications Stable (4) Dementia: Code(s): F03.90 - Unspecified dementia, unspecified severity, without behavioral disturbance, psychotic disturbance, mood disturbance, and anxiety Status: Acute Assessment and Plan: History of Dementia Will most likely need placement Hospice is in consideration Continue home medications Will need medicaid pending bed (5) Atrial fibrillation: Code(s): I48.91 - Unspecified atrial fibrillation Status: Acute Assessment and Plan: History of watchman's device. Continue with p.o. amiodarone Not taking any medication most likely related to dementia status No anticoagulation at this time due to frequent falls Ok to DC tele at this time. (6) LIBIA (obstructive sleep apnea): Code(s): G47.33 - Obstructive sleep apnea (adult) (pediatric) Status: Acute Assessment and Plan: Home settings for BiPAP/CPAP (7) Hypertension: Code(s): I10 - Essential (primary) hypertension Status: Acute Assessment and Plan: Current 122/74 Continue home lisinopril, metoprolol, amiodarone, isosorbide Trend BP adjust therapy at this time (8) Diabetes mellitus: Code(s): E11.9 - Type 2 diabetes mellitus without complications Status: Acute Assessment and Plan: Glucose 154 Holding metformin Continue with Januvia Accu-Cheks AC and HS hypoglycemic protocol A1c 7.5 (9) Dyslipidemia: Code(s): E78.5 - Hyperlipidemia, unspecified Status: Acute Assessment and Plan: Continue with atorvastatin Plan Large black wound to the left heel, wound ordered for Sunday. Could need general surgery Time Spent With Patient Time: 64 minutes, got patient up to the chair to a recliner with walker and gait belt Time with patient: Greater than 35 minutes Subjective Date/time seen: 07/29/22 1115 Interval history: 07/29/22 111 Get patient to the chair. Patient stated that he was doing okay other than he was having some back pain from lying in the bed. Today is the 1st day that he did take his medications. was present did discuss plan of care. Was also noted the patient does have a nice size wound to his left heel will have wound care of look at that on Sunday. Currently patient is on ampicillin for UTI. Patient denies any chest pain, shortness a breath, nausea, vomiting, diarrhea or constipation. 07/28/22 1000 Patient is crabby today. He is really upset because he wants to get up. Was able to get him to a chair. He did take about 3 steps. Walker and gait belt used. He did state that he does better without the walker. He denies any chest pain, shortness of breath, nausea, vomiting, diarrhea, or constipation. He is eating ok. Tele showed afib without any ectopy. Tele can be DC'd at this time. 07/27/22 1245 Patient seems to b
--- NOTE | 2022-07-29 11:15 | P.PNIM_ITS ---
Progress Note: A&P Assessment and Plan (1) UTI (urinary tract infection): Code(s): N39.0 - Urinary tract infection, site not specified Status: Acute Assessment and Plan: * UA appears infectious * Urine culture grew enterococcus * Change Vancomycin to ampicillin per sensitivities * Will most likely need IV antibiotics for 10 days (2) COVID: Code(s): U07.1 - COVID-19 Status: Acute Assessment and Plan: * [facility]ed [facility] * Positive here on 07/27/22 * On room air * No indication for respiratory distress at this time * No indication for further treatment at this time (3) Chronic renal failure, stage 3 (moderate): Code(s): N18.30 - Chronic kidney disease, stage 3 unspecified Status: Acute Assessment and Plan: * BUN/Cr 22/0.70 07/28/22 * GFR is stable at this time * Baseline creatinine is 0.90 * Continue to trend lab * Avoid nephrotoxic medications * Stable (4) Dementia: Code(s): F03.90 - Unspecified dementia, unspecified severity, without behavioral disturbance, psychotic disturbance, mood disturbance, and anxiety Status: Acute Assessment and Plan: * History of Dementia * Will most likely need placement * Hospice is in consideration * Continue home medications * Will need medicaid pending bed (5) Atrial fibrillation: Code(s): I48.91 - Unspecified atrial fibrillation Status: Acute Assessment and Plan: * History of watchman's device. * Continue with p.o. amiodarone * Not taking any medication most likely related to dementia status * No anticoagulation at this time due to frequent falls * Ok to DC [employer] at this time. (6) LIBIA (obstructive sleep apnea): Code(s): G47.33 - Obstructive sleep apnea (adult) (pediatric) Status: Acute Assessment and Plan: * Home settings for BiPAP/CPAP (7) Hypertension: Code(s): I10 - Essential (primary) hypertension Status: Acute Assessment and Plan: * Current 122/74 * Continue home lisinopril, metoprolol, amiodarone, isosorbide * Trend BP * adjust therapy at this time (8) Diabetes mellitus: Code(s): E11.9 - Type 2 diabetes mellitus without complications Status: Acute Assessment and Plan: * Glucose 154 * Holding metformin * Continue with Januvia * Accu-Cheks AC and HS * hypoglycemic protocol * A1c 7.5 (9) Dyslipidemia: Code(s): E78.5 - Hyperlipidemia, unspecified Status: Acute Assessment and Plan: * Continue with atorvastatin Plan Large black wound to the left heel, wound ordered for Sunday. Could need general surgery Time Spent With Patient Time: 64 minutes, got patient up to the chair to a recliner with walker and gait belt Time with patient: Greater than 35 minutes Subjective Date/time seen: 07/29/221114 Interval history: 07/29/221114 Get patient to the chair. Patient stated that he was doing okay other than he was having some back pain from lying in the bed. Today is the 1st day that he did take his me
[2022-07-29 12:05] LABS: Glucose Point of Care 180 mg/dl (65-105)
[2022-07-29] MEDS: HYDROmorphone HCL INJ (*CRX) 1 MG/ML SYR 0.5 MG IV PUSH (12:09)
[2022-07-29] MEDS: SILVERGEL (ELTA) 45 ML 1 APPLIC TOPICAL (12:31)
[2022-07-29 16:43] LABS: Glucose Point of Care 140 mg/dl (65-105)
[2022-07-29] MEDS: ATORVASTATIN 40 MG TABLET PO (19:49)
[2022-07-29 20:06] LABS: Vancomycin Trough 16.9 ug/mL (10.0-20.0)
[2022-07-29] MEDS: LORazepam (*CRX) 0.5 MG TABLET PO (20:19)
[2022-07-30] VITALS (9 sets, daily range): BP systolic 95–116; BP diastolic 52–76; PULSE 56–94; RESP 18–20; TEMP 35.9–37.1; O2SAT 94–98
[2022-07-30] MEDS: AMPICILLIN 2 GM/NS 100 ML 2 GM/100 ML BAG IVPB ×4 (04:30→22:45)
[2022-07-30 05:19] LABS: Estimated CRCL calculation 100 ml/min; Estimated Glomerular Filt Rate > 60
--- NOTE | 2022-07-30 07:30 | P.PNIM_ITS ---
Progress Note: A&P Assessment and Plan (1) UTI (urinary tract infection): Code(s): N39.0 - Urinary tract infection, site not specified Status: Acute Assessment and Plan: * UA appears infectious * Urine culture grew enterococcus * Continue ampicillin per sensitivities, will continue IV as he is refusing medications * Will most likely need IV antibiotics for 10 days (2) COVID: Code(s): U07.1 - COVID-19 Status: Acute Assessment and Plan: * Tested positive at [facility] * Positive here on 07/27/22, and positive at [facility] on 07/20/22 * Ok to DC isolation precautions * On room air * No indication for respiratory distress at this time * No indication for further treatment at this time (3) Chronic renal failure, stage 3 (moderate): Code(s): N18.30 - Chronic kidney disease, stage 3 unspecified Status: Acute Assessment and Plan: * BUN/Cr 22/0.70 07/28/22 * GFR is stable at this time * Baseline creatinine is 0.90 * Continue to trend lab * Avoid nephrotoxic medications * Stable (4) Dementia: Code(s): F03.90 - Unspecified dementia, unspecified severity, without behavioral disturbance, psychotic disturbance, mood disturbance, and anxiety Status: Acute Assessment and Plan: * History of Dementia * Will most likely need placement * Hospice is in consideration * Continue home medications * Will need medicaid pending bed (5) Atrial fibrillation: Code(s): I48.91 - Unspecified atrial fibrillation Status: Acute Assessment and Plan: * History of watchman's device. * Heart rate remains stable * Continue with p.o. amiodarone * Not taking any medication most likely related to dementia status * No anticoagulation at this time due to frequent falls (6) LIBIA (obstructive sleep apnea): Code(s): G47.33 - Obstructive sleep apnea (adult) (pediatric) Status: Acute Assessment and Plan: * Home settings for BiPAP/CPAP (7) Hypertension: Code(s): I10 - Essential (primary) hypertension Status: Acute Assessment and Plan: * Current * Continue home lisinopril, metoprolol, amiodarone, isosorbide * Trend BP * adjust therapy at this time (8) Diabetes mellitus: Code(s): E11.9 - Type 2 diabetes mellitus without complications Status: Acute Assessment and Plan: * Glucose 180 * Holding metformin * Continue with Januvia * Accu-Cheks AC and HS * hypoglycemic protocol * A1c 7.5 (9) Dyslipidemia: Code(s): E78.5 - Hyperlipidemia, unspecified Status: Acute Assessment and Plan: * Continue with atorvastatin Plan Large black wound to the left heel, wound ordered for Sunday. Could need general surgery Isolation precautions are over at this point as patient tested positive for COVID on 07/20/22. Time Spent With Patient Time: 48 minutes Time with patient: Greater than 35 minutes Subjective Date/time seen: 07/30/22729 Interval history: 07/30/22729 Patient appears quit
--- NOTE | 2022-07-30 07:30 | PM.IMPN ---
Progress Note: A&P Assessment and Plan (1) UTI (urinary tract infection): Code(s): N39.0 - Urinary tract infection, site not specified Status: Acute Assessment and Plan: UA appears infectious Urine culture grew enterococcus Continue ampicillin per sensitivities, will continue IV as he is refusing medications Will most likely need IV antibiotics for 10 days (2) COVID: Code(s): U07.1 - COVID-19 Status: Acute Assessment and Plan: Tested positive at [facility] Positive here on 07/27/22, and positive at [facility] on 07/20/22 Ok to DC isolation precautions On room air No indication for respiratory distress at this time No indication for further treatment at this time (3) Chronic renal failure, stage 3 (moderate): Code(s): N18.30 - Chronic kidney disease, stage 3 unspecified Status: Acute Assessment and Plan: BUN/Cr 22/0.70 07/28/22 GFR is stable at this time Baseline creatinine is 0.90 Continue to trend lab Avoid nephrotoxic medications Stable (4) Dementia: Code(s): F03.90 - Unspecified dementia, unspecified severity, without behavioral disturbance, psychotic disturbance, mood disturbance, and anxiety Status: Acute Assessment and Plan: History of Dementia Will most likely need placement Hospice is in consideration Continue home medications Will need medicaid pending bed (5) Atrial fibrillation: Code(s): I48.91 - Unspecified atrial fibrillation Status: Acute Assessment and Plan: History of watchman's device. Heart rate remains stable Continue with p.o. amiodarone Not taking any medication most likely related to dementia status No anticoagulation at this time due to frequent falls (6) LIBIA (obstructive sleep apnea): Code(s): G47.33 - Obstructive sleep apnea (adult) (pediatric) Status: Acute Assessment and Plan: Home settings for BiPAP/CPAP (7) Hypertension: Code(s): I10 - Essential (primary) hypertension Status: Acute Assessment and Plan: Current Continue home lisinopril, metoprolol, amiodarone, isosorbide Trend BP adjust therapy at this time (8) Diabetes mellitus: Code(s): E11.9 - Type 2 diabetes mellitus without complications Status: Acute Assessment and Plan: Glucose 180 Holding metformin Continue with Januvia Accu-Cheks AC and HS hypoglycemic protocol A1c 7.5 (9) Dyslipidemia: Code(s): E78.5 - Hyperlipidemia, unspecified Status: Acute Assessment and Plan: Continue with atorvastatin Plan Large black wound to the left heel, wound ordered for Sunday. Could need general surgery Isolation precautions are over at this point as patient tested positive for COVID on 07/20/22. Time Spent With Patient Time: 48 minutes Time with patient: Greater than 35 minutes Subjective Date/time seen: 07/30/22729 Interval history: 07/30/22729 Patient appears quite restless today. He currently denies any chest pain, shortness a breath, nausea, vomiting, diarrhea constipation. He did state that he is having some back pain. Urine output seems to be stable at this time. Will continue to work with him for PT and OT. Wound consult is ordered for his left heel. Currently patient is doing okay. 07/29/22 1115 Get patient to the chair. Patient stated that he was doing okay other than he was having some back pain from lying in the bed. Today is the 1st day that he did take his medications. was present did discuss plan of care. Was also noted the patient does have a nice size wound to his left heel will have wound care of look at that on Sunday. Currently patient is on ampicillin for UTI. Patient denies any chest pain, short
[2022-07-30] MEDS: ENOXAPARIN 40 MG/0.4 ML SYRINGE SUB-Q (07:44)
[2022-07-30] MEDS: ASPIRIN 81 MG CHEWABLE TABLET PO (07:45)
[2022-07-30] MEDS: AMIODARONE HCL 200 MG TABLET PO (07:45)
[2022-07-30] MEDS: PANTOPRAZOLE 40 MG TABLET PO ×2 (07:45→16:13)
[2022-07-30] MEDS: ASCORBIC ACID 500 MG TABLET PO ×2 (07:46→16:13)
[2022-07-30] MEDS: METOPROLOL SUCCINATE EXT REL 25 MG TABCR PO (07:46)
[2022-07-30] MEDS: traMADol HCL (*CRX) 50 MG TABLET 100 MG PO ×3 (07:47→20:07)
[2022-07-30] MEDS: SERTRALINE HCL 50 MG TABLET PO (07:47)
[2022-07-30] MEDS: TIZANIDINE HCL 2 MG TABLET PO ×2 (07:47→16:13)
[2022-07-30] MEDS: POTASSIUM CHLORIDE 10 MEQ TABLET.ER 40 MEQ PO (07:47)
[2022-07-30] MEDS: allopurinoL 300 MG TABLET PO (07:47)
[2022-07-30] MEDS: FUROSEMIDE 40 MG TABLET PO ×2 (07:47→16:13)
[2022-07-30] MEDS: lisinopriL 10 MG TABLET PO (07:47)
[2022-07-30] MEDS: ISOSORBIDE MONONITRATE 30 MG TAB.ER.24H PO (07:48)
[2022-07-30 08:29] LABS: Glucose Point of Care 180 mg/dl (65-105)
[2022-07-30 11:45] LABS: Glucose Point of Care 159 mg/dl (65-105)
[2022-07-30] MEDS: LORazepam (*CRX) 0.5 MG TABLET PO ×2 (16:13→21:57)
[2022-07-30 17:16] LABS: Glucose Point of Care 142 mg/dl (65-105)
[2022-07-30] MEDS: ATORVASTATIN 40 MG TABLET PO (20:07)
[2022-07-30] MEDS: QUEtiapine FUMARATE 25 MG TABLET PO (20:56)
[2022-07-31] MEDS: AMPICILLIN 2 GM/NS 100 ML 2 GM/100 ML BAG IVPB ×4 (03:51→21:06)
[2022-07-31 05:22] LABS: Basophils Percent Auto 0.6 % (0.2-1.2); Eosinophils Absolute Auto 0.3 K/mm3 (0-0.3); Eosinophils Percent Auto 3.7 % (0-4.4); Hematocrit 35.2 % (42.0-52.0); Hemoglobin 10.9 g/dL (14.0-18.0); Immature Granulocyte Percent A 1.4 % (0-0.5); Lymphocytes Absolute Auto 1.28 K/mm3 (0.9-3.2); Lymphocytes Percent Auto 18.1 % (18.3-44.2); Mean Corpuscular Hemoglobin 26.3 pg (26-34); Mean Corpuscular Volume 84.8 fl (80-100); Mean Platelet Volume 9.6 fl (7.4-10.4); Monocytes Percent Auto 14.2 % (2.6-8.5); Neutrophils Absolute Auto 4.4 K/mm3 (1.3-6.7); Platelet Count Result 271 k/mm3 (150-375); Red Blood Count 4.15 M/mm3 (4.6-6.20); Red Cell Distribution Width 17.2 % (11.5-14.5); White Blood Count 7.1 K/mm3 (4.5-10.0)
[2022-07-31 05:33] LABS: Alanine Aminotransferase 17 U/L (6-50); Albumin Level 3.2 g/dL (3.5-5.1); Alkaline Phosphatase 55 U/L (38-126); Anion Gap 7 mmol/L (8-16); Aspartate Amino Transferase 26 U/L (17-59); Bilirubin,Total 0.8 mg/dL (0.2-1.3); Blood Urea Nitrogen 10 mg/dL (9-20); Calcium 8.6 mg/dL (8.4-10.2); Carbon Dioxide 24 mmol/L (22-30); Chloride 105 mmol/L (98-107); Estimated CRCL calculation 87 ml/min; Estimated Glomerular Filt Rate > 60; Glucose 130 mg/dL (65-110); Magnesium 1.5 mg/dL (1.6-2.3); Potassium 3.3 mmol/L (3.4-5.0); Sodium 136 mmol/L (137-145)
[2022-07-31 05:58] VITALS: BP 146/75; PULSE 81; RESP 18; TEMP 36.7; O2SAT 97
[2022-07-31] MEDS: traMADol HCL (*CRX) 50 MG TABLET 100 MG PO ×2 (07:45→17:41)
[2022-07-31] MEDS: LORazepam (*CRX) 0.5 MG TABLET PO ×2 (07:45→17:41)
[2022-07-31] MEDS: ASPIRIN 81 MG CHEWABLE TABLET PO (07:45)
[2022-07-31] MEDS: PANTOPRAZOLE 40 MG TABLET PO ×2 (07:46→16:10)
[2022-07-31] MEDS: SERTRALINE HCL 50 MG TABLET PO (07:46)
[2022-07-31] MEDS: allopurinoL 300 MG TABLET PO (07:46)
[2022-07-31] MEDS: ENOXAPARIN 40 MG/0.4 ML SYRINGE SUB-Q (07:47)
[2022-07-31] MEDS: ASCORBIC ACID 500 MG TABLET PO ×2 (07:47→16:10)
[2022-07-31] MEDS: FUROSEMIDE 40 MG TABLET PO ×2 (07:48→16:11)
[2022-07-31 07:49] VITALS: PULSE 84
[2022-07-31] MEDS: METOPROLOL SUCCINATE EXT REL 25 MG TABCR PO (07:49)
[2022-07-31] MEDS: ISOSORBIDE MONONITRATE 30 MG TAB.ER.24H PO (07:49)
[2022-07-31] MEDS: lisinopriL 10 MG TABLET PO (07:49)
[2022-07-31 07:50] VITALS: PULSE 84; RESP 18; O2SAT 97
[2022-07-31] MEDS: AMIODARONE HCL 200 MG TABLET PO (07:50)
[2022-07-31 08:40] LABS: Glucose Point of Care 140 mg/dl (65-105)
[2022-07-31] MEDS: MAGNESIUM SULF 2 GM/WATER 50ML 2 GM/50 ML BAG IVPB (09:09)
[2022-07-31] MEDS: POTASSIUM CHLORIDE 20 MEQ TABLET PO (09:09)
[2022-07-31 09:24] VITALS: BMI 10.0
[2022-07-31 11:39] LABS: Glucose Point of Care 131 mg/dl (65-105)
--- NOTE | 2022-07-31 11:45 | PC.NURSE ---
Left heal wound present on admission on 07/26/22 at 1800 but unable to visualize due to patient being impulsive with allowing nurse to due a full skin assessment.
[2022-07-31 14:58] VITALS: BP 133/64; PULSE 70; RESP 16; TEMP 35.9; O2SAT 94
--- NOTE | 2022-07-31 15:11 | PM.IMPN ---
Progress Note: A&P Assessment and Plan (1) UTI (urinary tract infection): Code(s): N39.0 - Urinary tract infection, site not specified Status: Acute Assessment and Plan: urinalysis abnormal on presentation Urine culture with growth of vancomycin-resistant Enterococcus continue ampicillin per sensitivities continue IV antibiotics as patient has refused p.o. medications (2) COVID: Code(s): U07.1 - COVID-19 Status: Acute Assessment and Plan: patient reportedly positive for COVID-19 on 07/20/2022 at nursing facility COVID-19 PCR positive on admission on 07/27/2022 patient has no oxygen requirement and therefore no specific COVID-19 therapy is indicated isolation precautions can be discontinued given onset and duration of COVID-19. Isolation protocols deferred to field automobile adjuster (3) Chronic renal failure, stage 3 (moderate): Code(s): N18.30 - Chronic kidney disease, stage 3 unspecified Status: Acute Assessment and Plan: labs are stable. no acute issues (4) Dementia: Code(s): F03.90 - Unspecified dementia, unspecified severity, without behavioral disturbance, psychotic disturbance, mood disturbance, and anxiety Status: Acute Assessment and Plan: patient with dementia, progressively declining over the last several months per patient's patient's considering hospice care appreciate care coordination assistance (5) Atrial fibrillation: Code(s): I48.91 - Unspecified atrial fibrillation Status: Acute Assessment and Plan: Rate is controlled at this time Patient is s/p watchman procedure. not on anticoagulation given bleeding risk due to frequent falls Heart rate remains stable Continue with p.o. amiodarone (6) LIBIA (obstructive sleep apnea): Code(s): G47.33 - Obstructive sleep apnea (adult) (pediatric) Status: Acute Assessment and Plan: Home settings for BiPAP/CPAP (7) Hypertension: Code(s): I10 - Essential (primary) hypertension Status: Acute Assessment and Plan: blood pressures are stable Continue home lisinopril, metoprolol, amiodarone, isosorbide (8) Diabetes mellitus: Code(s): E11.9 - Type 2 diabetes mellitus without complications Status: Acute Assessment and Plan: A1c is 7.5 continue Accu-Cheks, sliding scale insulin, hypoglycemic protocol continue home Januvia metformin on hold Plan potassium and magnesium supplemented Subjective Date/time seen: 07/31/22 15:11 Interval history: date of service: 07/31/2022 Jesus Landis is an 81-year-old male with history of CKD, hypertension, atrial fibrillation s/p watchman procedure, prostate cancer, diabetes mellitus, and several other medical problems who is seen in follow-up after suffering a fall. The patient is a poor historian does not contribute to history. Nursing staff informed me that patient cut out of bed today and sat in the chair for breakfast. Patient reports eating breakfast but cannot recall when he had other than coffee. He denies chest pain. Denies shortness of breath. denies dysuria or hematuria. Does not provide any additional information . Patient's at bedside. She is tearful. States that patient has become progressively worse over the past several months and she states that he would not want to live this way as he is no longer to get himself out of bed and is forgetful. She inquired about hospice care and had a meeting with hospice team several days prior during patient's admission. She would like to proceed with this but is unsure about insurance coverage. Review of Systems Review of Systems: ROS unobtainable: Yes unobtainable due to mental status Exam Narrative: General: Well-nourished, chronically ill-appearing 81 -year-old male, sitting up in bed, comfortable, NARD Neuro: awake, alert and oriented x2, speech
[2022-07-31 17:17] LABS: Glucose Point of Care 136 mg/dl (65-105)
[2022-07-31 20:07] VITALS: BP 142/84; PULSE 74; RESP 22; TEMP 36.3; O2SAT 95
[2022-07-31] MEDS: ATORVASTATIN 40 MG TABLET PO (20:44)
[2022-07-31] MEDS: QUEtiapine FUMARATE 25 MG TABLET PO (20:44)
[2022-07-31 22:35] VITALS: PULSE 71; O2SAT 97
[2022-08-01 00:15] LABS: Glucose Point of Care 130 mg/dl (65-105)
[2022-08-01] MEDS: LORazepam (*CRX) 0.5 MG TABLET PO ×3 (03:21→18:59)
[2022-08-01 04:01] VITALS: BP 115/90; PULSE 75; RESP 22; TEMP 36.4; O2SAT 95
[2022-08-01] MEDS: AMPICILLIN 2 GM/NS 100 ML 2 GM/100 ML BAG IVPB ×2 (04:40→09:13)
[2022-08-01 05:29] LABS: Hematocrit 35.2 % (42.0-52.0); Hemoglobin 10.9 g/dL (14.0-18.0); Mean Corpuscular Hemoglobin 26.1 pg (26-34); Mean Corpuscular Volume 84.2 fl (80-100); Mean Platelet Volume 9.7 fl (7.4-10.4); Platelet Count Result 315 k/mm3 (150-375); Red Blood Count 4.18 M/mm3 (4.6-6.20); Red Cell Distribution Width 17.2 % (11.5-14.5); White Blood Count 7.5 K/mm3 (4.5-10.0)
[2022-08-01 05:54] LABS: Anion Gap 8 mmol/L (8-16); Blood Urea Nitrogen 10 mg/dL (9-20); Calcium 8.6 mg/dL (8.4-10.2); Carbon Dioxide 27 mmol/L (22-30); Chloride 101 mmol/L (98-107); Estimated CRCL calculation 87 ml/min; Estimated Glomerular Filt Rate > 60; Glucose 119 mg/dL (65-110); Potassium 3.2 mmol/L (3.4-5.0); Sodium 136 mmol/L (137-145)
[2022-08-01 08:06] LABS: Magnesium 1.5 mg/dL (1.6-2.3)
[2022-08-01 08:24] LABS: Glucose Point of Care 125 mg/dl (65-105)
[2022-08-01 08:30] VITALS: O2SAT 93
[2022-08-01] MEDS: ASPIRIN 81 MG CHEWABLE TABLET PO (08:51)
[2022-08-01] MEDS: POTASSIUM CHLORIDE 20 MEQ TABLET 40 MEQ PO (08:52)
[2022-08-01] MEDS: allopurinoL 300 MG TABLET PO (08:52)
[2022-08-01 08:53] VITALS: PULSE 89
[2022-08-01] MEDS: AMIODARONE HCL 200 MG TABLET PO (08:53)
[2022-08-01] MEDS: lisinopriL 10 MG TABLET PO (08:55)
[2022-08-01] MEDS: ASCORBIC ACID 500 MG TABLET PO ×2 (08:55→17:54)
[2022-08-01] MEDS: FUROSEMIDE 40 MG TABLET PO ×2 (08:55→17:54)
[2022-08-01] MEDS: ISOSORBIDE MONONITRATE 30 MG TAB.ER.24H PO (08:55)
[2022-08-01] MEDS: ENOXAPARIN 40 MG/0.4 ML SYRINGE SUB-Q (08:55)
[2022-08-01 08:56] VITALS: PULSE 89
[2022-08-01] MEDS: METOPROLOL SUCCINATE EXT REL 25 MG TABCR PO (08:56)
[2022-08-01] MEDS: PANTOPRAZOLE 40 MG TABLET PO ×2 (08:56→17:54)
[2022-08-01] MEDS: traMADol HCL (*CRX) 50 MG TABLET 100 MG PO ×3 (08:57→17:55)
[2022-08-01] MEDS: SERTRALINE HCL 50 MG TABLET PO (08:57)
[2022-08-01] MEDS: SILVERGEL (ELTA) 45 ML 1 APPLIC TOPICAL (08:58)
--- NOTE | 2022-08-01 10:59 | PCNFU ---
Nutrition Follow-Up Complete: Inadequate energy intake related to reduced appetite as evidenced by report and charted intake goal: PO intake to improve to 50% or greater for meals Patient has limited progress towards goal. We will continue current goal. Pt current nutrition is Heart Healthy with Ensure compact BID Nutrition Recommendation: Joe BID for wound healing. Last recorded weight is 114 kg. Bowel Motility:+BM reported 3/2 Labs Reviewed: Mg 1.5, Glu 119, Na 136, K 3.2,Hct 35.2 Meds Noted:Protonix, Januvia, Ultram Skin: left heel PU Additional Notes: Patient remains on a heart healthy diet. Oral intake-poor. Today did eat oatmeal and drank ensure per nursing. Joe added today BID for would healing. PO intake encouraged. Agree with diet orders. Monitor intake, wt, labs. Follow up in 5 days.
[2022-08-01 12:01] LABS: Glucose Point of Care 147 mg/dl (65-105)
[2022-08-01 17:00] VITALS: BP 111/72; PULSE 77; RESP 18; TEMP 36.3; O2SAT 96
[2022-08-01 17:06] LABS: Glucose Point of Care 124 mg/dl (65-105)
--- NOTE | 2022-08-01 17:18 | PM.IMPN ---
Progress Note: A&P Assessment and Plan (1) UTI (urinary tract infection): Code(s): N39.0 - Urinary tract infection, site not specified Status: Acute Assessment and Plan: urinalysis abnormal on presentation Urine culture with growth of vancomycin-resistant Enterococcus received IV ampicillin per sensitivities. Transition to PO amoxicillin per ID pharmD recs. 500 mg q8h to complete 7 days. Continue through 08/03/22 (2) COVID: Code(s): U07.1 - COVID-19 Status: Acute Assessment and Plan: patient reportedly positive for COVID-19 on 07/20/2022 at nursing facility COVID-19 PCR positive on admission on 07/27/2022 patient has no oxygen requirement and therefore no specific COVID-19 therapy is indicated isolation precautions can be discontinued given onset and duration of COVID-19. Isolation protocols deferred to coning machine operator (3) Chronic renal failure, stage 3 (moderate): Code(s): N18.30 - Chronic kidney disease, stage 3 unspecified Status: Acute Assessment and Plan: labs are stable. no acute issues (4) Dementia: Code(s): F03.90 - Unspecified dementia, unspecified severity, without behavioral disturbance, psychotic disturbance, mood disturbance, and anxiety Status: Acute Assessment and Plan: patient with dementia, progressively declining over the last several months per patient's patient's considering hospice care appreciate care coordination assistance (5) Atrial fibrillation: Code(s): I48.91 - Unspecified atrial fibrillation Status: Acute Assessment and Plan: Rate is controlled at this time Patient is s/p watchman procedure. not on anticoagulation given bleeding risk due to frequent falls Heart rate remains stable Continue with p.o. amiodarone (6) LIBIA (obstructive sleep apnea): Code(s): G47.33 - Obstructive sleep apnea (adult) (pediatric) Status: Acute Assessment and Plan: Home settings for BiPAP/CPAP (7) Hypertension: Code(s): I10 - Essential (primary) hypertension Status: Acute Assessment and Plan: blood pressures are stable Continue home lisinopril, metoprolol, amiodarone, isosorbide (8) Diabetes mellitus: Code(s): E11.9 - Type 2 diabetes mellitus without complications Status: Acute Assessment and Plan: A1c is 7.5 continue Accu-Cheks, sliding scale insulin, hypoglycemic protocol continue home Roxanne metformin on hold Plan potassium and magnesium supplemented Subjective Date/time seen: 08/01/22 17:18 Interval history: date of service: 08/01/2022 Jesus Landis is an 81-year-old male with history of CKD, hypertension, atrial fibrillation s/p watchman procedure, prostate cancer, diabetes mellitus, and several other medical problems who is seen in follow-up after suffering a fall. The patient is a poor historian does not reliably contribute to history. he he complains of pain all over, mostly in his back, buttocks, and legs. He cannot get comfortable in bed. Not able to provide any additional information spoke with care coordination today. Patient's /POA is interested in pursuing hospice care. Review of Systems Review of Systems: ROS unobtainable: Yes unobtainable due to mental status Exam Narrative: General: Well-nourished, chronically ill-appearing 81-year-old male, supine in bed, comfortable, NARD Neuro: awake, alert and oriented x1, speech clear, no focal neuro deficits noted, forgetful HEENMT: normocephalic, atraumatic, EOMI, sclerae anicteric, moist oral mucosa Respiratory: clear to auscultation bilaterally, nonlabored breathing Cardio: regular rate, regular rhythm with S1-S2 Abdomen: protuberant, normoactive bowel sounds, soft, nontender to palpation Extremities: no edema, erythema, or tenderness to palpation Skin: no rashes or lesions, warm and dry Psych: appropr
[2022-08-01] MEDS: AMOXICILLIN 500 MG CAPSULE PO ×2 (17:54→20:38)
[2022-08-01] MEDS: MAGNESIUM SULF 2 GM/WATER 50ML 2 GM/50 ML BAG IVPB (17:55)
[2022-08-01 20:25] VITALS: BP 108/56; PULSE 84; RESP 18; TEMP 36.2; O2SAT 97
[2022-08-01] MEDS: ATORVASTATIN 40 MG TABLET PO (20:26)
[2022-08-01] MEDS: ACETAMINOPHEN 500 MG TABLET 1000 MG PO (20:26)
[2022-08-01] MEDS: QUEtiapine FUMARATE 25 MG TABLET PO (20:27)
[2022-08-01 20:47] LABS: Glucose Point of Care 128 mg/dl (65-105)
[2022-08-02] MEDS: LORazepam (*CRX) 0.5 MG TABLET PO (03:50)
[2022-08-02 03:53] VITALS: BP 108/56; PULSE 94; RESP 20; TEMP 36.1; O2SAT 97
[2022-08-02] MEDS: AMOXICILLIN 500 MG CAPSULE PO ×3 (05:14→22:00)
[2022-08-02 06:19] LABS: Hematocrit 34.8 % (42.0-52.0); Hemoglobin 10.8 g/dL (14.0-18.0); Mean Corpuscular Hemoglobin 26.7 pg (26-34); Mean Corpuscular Volume 85.9 fl (80-100); Mean Platelet Volume 9.6 fl (7.4-10.4); Platelet Count Result 310 k/mm3 (150-375); Red Blood Count 4.05 M/mm3 (4.6-6.20); Red Cell Distribution Width 17.7 % (11.5-14.5); White Blood Count 7.4 K/mm3 (4.5-10.0)
[2022-08-02 06:31] LABS: Anion Gap 7 mmol/L (8-16); Blood Urea Nitrogen 12 mg/dL (9-20); Calcium 8.8 mg/dL (8.4-10.2); Carbon Dioxide 26 mmol/L (22-30); Chloride 99 mmol/L (98-107); Estimated CRCL calculation 77 ml/min; Estimated Glomerular Filt Rate > 60; Glucose 130 mg/dL (65-110); Magnesium 1.8 mg/dL (1.6-2.3); Potassium 3.6 mmol/L (3.4-5.0); Sodium 132 mmol/L (137-145)
[2022-08-02 08:14] VITALS: O2SAT 99
[2022-08-02 08:43] LABS: Glucose Point of Care 126 mg/dl (65-105)
[2022-08-02] MEDS: SILVERGEL (ELTA) 45 ML 1 APPLIC TOPICAL (10:10)
[2022-08-02] MEDS: ENOXAPARIN 40 MG/0.4 ML SYRINGE SUB-Q (10:10)
[2022-08-02 10:11] VITALS: PULSE 94
[2022-08-02] MEDS: METOPROLOL SUCCINATE EXT REL 25 MG TABCR PO (10:11)
[2022-08-02] MEDS: SERTRALINE HCL 50 MG TABLET PO (10:11)
[2022-08-02] MEDS: PANTOPRAZOLE 40 MG TABLET PO ×2 (10:11→17:16)
[2022-08-02] MEDS: ASPIRIN 81 MG CHEWABLE TABLET PO (10:11)
[2022-08-02] MEDS: lisinopriL 10 MG TABLET PO (10:11)
[2022-08-02] MEDS: ASCORBIC ACID 500 MG TABLET PO ×2 (10:11→17:17)
[2022-08-02 10:12] VITALS: PULSE 96
[2022-08-02] MEDS: traMADol HCL (*CRX) 50 MG TABLET 100 MG PO ×3 (10:12→17:17)
[2022-08-02] MEDS: allopurinoL 300 MG TABLET PO (10:12)
[2022-08-02] MEDS: ISOSORBIDE MONONITRATE 30 MG TAB.ER.24H PO (10:12)
[2022-08-02] MEDS: AMIODARONE HCL 200 MG TABLET PO (10:12)
[2022-08-02] MEDS: FUROSEMIDE 40 MG TABLET PO (10:12)
[2022-08-02 12:21] LABS: Glucose Point of Care 164 mg/dl (65-105)
--- NOTE | 2022-08-02 13:44 | PM.IMPN ---
Progress Note: A&P Assessment and Plan (1) UTI (urinary tract infection): Code(s): N39.0 - Urinary tract infection, site not specified Status: Acute Assessment and Plan: urinalysis abnormal on presentation Urine culture with growth of vancomycin-resistant Enterococcus received IV ampicillin per sensitivities. Transitioned to PO amoxicillin on 08/01 per ID pharmD recs. 500 mg q8h to complete 7 days. Continue through 08/03/22 (2) COVID: Code(s): U07.1 - COVID-19 Status: Acute Assessment and Plan: patient reportedly positive for COVID-19 on 07/20/2022 at nursing facility COVID-19 PCR positive on admission on 07/27/2022 patient has no oxygen requirement and therefore no specific COVID-19 therapy is indicated supportive care isolation precautions can be discontinued given onset and duration of COVID-19. Isolation protocols deferred to vp integrity (3) Chronic renal failure, stage 3 (moderate): Code(s): N18.30 - Chronic kidney disease, stage 3 unspecified Status: Acute Assessment and Plan: labs are stable. no acute issues (4) Dementia: Code(s): F03.90 - Unspecified dementia, unspecified severity, without behavioral disturbance, psychotic disturbance, mood disturbance, and anxiety Status: Acute Assessment and Plan: patient with dementia, progressively declining over the last several months per patient's patient's considering hospice care vs SNF. Awaiting placement options. He is no longer able to be cared for at home appreciate care coordination assistance (5) Atrial fibrillation: Code(s): I48.91 - Unspecified atrial fibrillation Status: Acute Assessment and Plan: Rate is controlled at this time Patient is s/p watchman procedure. not on anticoagulation given bleeding risk due to frequent falls Heart rate remains stable Continue with p.o. amiodarone (6) LIBIA (obstructive sleep apnea): Code(s): G47.33 - Obstructive sleep apnea (adult) (pediatric) Status: Acute Assessment and Plan: Home settings for BiPAP/CPAP (7) Hypertension: Code(s): I10 - Essential (primary) hypertension Status: Acute Assessment and Plan: blood pressures are stable, somewhat soft yesterday and today Will decrease furosemide to 40 mg daily Hold lisinopril Continue metoprolol, amiodarone, and isosorbide for cardiac needs (8) Diabetes mellitus: Code(s): E11.9 - Type 2 diabetes mellitus without complications Status: Acute Assessment and Plan: A1c is 7.5. Blood sugars controlled continue Accu-Cheks, sliding scale insulin, hypoglycemic protocol continue home Januvia metformin on hold Plan magnesium supplemented Subjective Date/time seen: 08/02/22 13:44 Interval history: Date of service: 08/02/2022 Jesus Landis is an 81-year-old male with history of CKD, hypertension, atrial fibrillation s/p watchman procedure, prostate cancer, diabetes mellitus, and several other medical problems who is seen in follow-up after suffering a fall. The patient is a poor historian and does not reliably contribute to history. He states that he is doing better today just feels uncomfortable laying in bed. He has some back pain due to this. Otherwise offers no complaints. denies cough, shortness of breath, , fever, chills, nausea vomiting, chest pain Review of Systems Review of Systems: All systems reviewed & are unremarkable except as noted in HPI and below Exam Narrative: General: Well-nourished, chronically ill-appearing 81-year-old male, supine in bed, comfortable, NARD Neuro: awake, alert and oriented x2, speech clear, no focal neuro deficits noted, forgetful HEENMT: normocephalic, atraumatic, EOMI, sclerae anicteric, moist oral mucosa Respiratory: clear to auscultation bilaterally, nonlabored breathing Cardio: regular rate, regular rhy
[2022-08-02 14:00] VITALS: BP 94/55; PULSE 85; TEMP 36.8; O2SAT 93
--- NOTE | 2022-08-02 14:13 | PCPTNOTE ---
Attempted to see patient for PT, however patient seemed agitated and refused to participate with therapy. Attempted to perform sit to stand transfers with lorene steady and perform seated low extremity exercises, patient refused to participate in any activity.
[2022-08-02] MEDS: POTASSIUM CHLORIDE 20 MEQ TABLET PO (15:00)
[2022-08-02] MEDS: MAGNESIUM SULF 2 GM/WATER 50ML 2 GM/50 ML BAG IVPB (15:00)
[2022-08-02 17:21] LABS: Glucose Point of Care 128 mg/dl (65-105)
[2022-08-02 20:15] LABS: Glucose Point of Care 201 mg/dl (65-105)
[2022-08-02 21:12] VITALS: BP 103/49; PULSE 75; RESP 18; TEMP 36.7; O2SAT 98
[2022-08-02] MEDS: ATORVASTATIN 40 MG TABLET PO (22:01)
[2022-08-02] MEDS: QUEtiapine FUMARATE 25 MG TABLET PO (22:01)
[2022-08-03] MEDS: AMOXICILLIN 500 MG CAPSULE PO ×3 (05:01→20:56)
[2022-08-03 05:56] VITALS: BP 111/63; PULSE 86; RESP 18; TEMP 36.8; O2SAT 96
[2022-08-03 05:59] LABS: Hematocrit 33.7 % (42.0-52.0); Hemoglobin 10.5 g/dL (14.0-18.0); Mean Corpuscular HGB Conc 31.2 g/dl (32-36); Mean Corpuscular Hemoglobin 26.6 pg (26-34); Mean Corpuscular Volume 85.3 fl (80-100); Mean Platelet Volume 9.5 fl (7.4-10.4); Platelet Count Result 317 k/mm3 (150-375); Red Blood Count 3.95 M/mm3 (4.6-6.20); White Blood Count 8.8 K/mm3 (4.5-10.0)
[2022-08-03 06:13] LABS: Anion Gap 6 mmol/L (8-16); Blood Urea Nitrogen 11 mg/dL (9-20); Calcium 8.4 mg/dL (8.4-10.2); Carbon Dioxide 27 mmol/L (22-30); Chloride 101 mmol/L (98-107); Estimated CRCL calculation 87 ml/min; Estimated Glomerular Filt Rate > 60; Glucose 121 mg/dL (65-110); Potassium 3.4 mmol/L (3.4-5.0); Sodium 134 mmol/L (137-145)
[2022-08-03] MEDS: LORazepam (*CRX) 0.5 MG TABLET PO ×3 (06:16→20:56)
[2022-08-03] MEDS: ACETAMINOPHEN 500 MG TABLET 1000 MG PO (06:55)
[2022-08-03 08:41] VITALS: PULSE 86
[2022-08-03] MEDS: allopurinoL 300 MG TABLET PO (08:41)
[2022-08-03] MEDS: ASPIRIN 81 MG CHEWABLE TABLET PO (08:41)
[2022-08-03] MEDS: AMIODARONE HCL 200 MG TABLET PO (08:41)
[2022-08-03] MEDS: ASCORBIC ACID 500 MG TABLET PO ×2 (08:41→16:45)
[2022-08-03 08:42] VITALS: PULSE 86
[2022-08-03] MEDS: ISOSORBIDE MONONITRATE 30 MG TAB.ER.24H PO (08:42)
[2022-08-03] MEDS: FUROSEMIDE 40 MG TABLET PO (08:42)
[2022-08-03] MEDS: PANTOPRAZOLE 40 MG TABLET PO ×2 (08:42→16:45)
[2022-08-03] MEDS: SERTRALINE HCL 50 MG TABLET PO (08:42)
[2022-08-03] MEDS: METOPROLOL SUCCINATE EXT REL 25 MG TABCR PO (08:42)
[2022-08-03] MEDS: ENOXAPARIN 40 MG/0.4 ML SYRINGE SUB-Q (08:42)
[2022-08-03] MEDS: SILVERGEL (ELTA) 45 ML 1 APPLIC TOPICAL (08:43)
[2022-08-03] MEDS: traMADol HCL (*CRX) 50 MG TABLET 100 MG PO ×3 (08:46→16:45)
[2022-08-03 08:48] LABS: Glucose Point of Care 133 mg/dl (65-105)
[2022-08-03 11:54] LABS: Glucose Point of Care 188 mg/dl (65-105)
[2022-08-03 14:00] VITALS: BP 101/68; PULSE 101; RESP 18; TEMP 36.7; O2SAT 94
--- NOTE | 2022-08-03 15:41 | P.PNIM_ITS ---
Progress Note: A&P Assessment and Plan (1) UTI (urinary tract infection): Code(s): N39.0 - Urinary tract infection, site not specified Status: Acute Assessment and Plan: urinalysis abnormal on presentation * Urine culture with growth of vancomycin-resistant Enterococcus * received IV ampicillin per sensitivities. * Transitioned to PO amoxicillin on 08/01 per ID pharmD recs. 500 mg q8h to complete 7 days. last dose this evening (2) COVID: Code(s): U07.1 - COVID-19 Status: Acute Assessment and Plan: patient reportedly positive for COVID-19 on 07/20/2022 at nursing facility * COVID-19 PCR positive on admission on 07/27/2022 * patient has no oxygen requirement and therefore no specific COVID-19 therapy is indicated * supportive care * isolation precautions can be discontinued given onset and duration of COVID- 19. Isolation protocols deferred to hob mill operator (3) Chronic renal failure, stage 3 (moderate): Code(s): N18.30 - Chronic kidney disease, stage 3 unspecified Status: Acute Assessment and Plan: labs are stable. no acute issues (4) Dementia: Code(s): F03.90 - Unspecified dementia, unspecified severity, without behavioral disturbance, psychotic disturbance, mood disturbance, and anxiety Status: Acute Assessment and Plan: patient with dementia, progressively declining over the last several months per patient's * Family has opted for hospice care. Planning for home hospice with DME to be delivered tomorrow morning. Hopeful discharge tomorrow following this. (5) Atrial fibrillation: Code(s): I48.91 - Unspecified atrial fibrillation Status: Acute Assessment and Plan: Rate is controlled * Patient is s/p watchman procedure. not on anticoagulation given bleeding risk due to frequent falls * Heart rate remains stable * Continue with p.o. amiodarone (6) LIBIA (obstructive sleep apnea): Code(s): G47.33 - Obstructive sleep apnea (adult) (pediatric) Status: Acute Assessment and Plan: Home settings for BiPAP/CPAP (7) Hypertension: Code(s): I10 - Essential (primary) hypertension Status: Acute Assessment and Plan: blood pressures are stable, somewhat soft. last BP 101/68 * Will decrease furosemide to 40 mg daily * Hold lisinopril * Continue metoprolol, amiodarone, and isosorbide for cardiac needs (8) Diabetes mellitus: Code(s): E11.9 - Type 2 diabetes mellitus without complications Status: Acute Assessment and Plan: A1c is 7.5. Blood sugars controlled * continue Accu-Cheks, sliding scale insulin, hypoglycemic protocol * continue home Januvia * metformin on hold (9) Dark stools: Code(s): R19.5 - Other fecal abnormalities Status: Acute Assessment and Plan: patient's nurse reports today that pt had two dark stools, almost maroon in color. There was some concern for blood. * H&H is stable * Planning for hospice care as above therefore will defer any further workup of possible occult blood in stool Subjective Date/time seen: 08/03/22 15:41 Interval history: Date of service: 08/03/2022 Jesus Landis is an 81-year-old male with history of CKD, hypertension, atrial fibrillation s/p watchman procedure, prostate cancer, diabetes mellitus, and several other medical problems who is seen in follow-up after suffering a fall. The patient is a poor historian and does not r
--- NOTE | 2022-08-03 15:41 | PM.IMPN ---
Progress Note: A&P Assessment and Plan (1) UTI (urinary tract infection): Code(s): N39.0 - Urinary tract infection, site not specified Status: Acute Assessment and Plan: urinalysis abnormal on presentation Urine culture with growth of vancomycin-resistant Enterococcus received IV ampicillin per sensitivities. Transitioned to PO amoxicillin on 08/01 per ID pharmD recs. 500 mg q8h to complete 7 days. last dose this evening (2) COVID: Code(s): U07.1 - COVID-19 Status: Acute Assessment and Plan: patient reportedly positive for COVID-19 on 07/20/2022 at nursing facility COVID-19 PCR positive on admission on 07/27/2022 patient has no oxygen requirement and therefore no specific COVID-19 therapy is indicated supportive care isolation precautions can be discontinued given onset and duration of COVID-19. Isolation protocols deferred to side framer (3) Chronic renal failure, stage 3 (moderate): Code(s): N18.30 - Chronic kidney disease, stage 3 unspecified Status: Acute Assessment and Plan: labs are stable. no acute issues (4) Dementia: Code(s): F03.90 - Unspecified dementia, unspecified severity, without behavioral disturbance, psychotic disturbance, mood disturbance, and anxiety Status: Acute Assessment and Plan: patient with dementia, progressively declining over the last several months per patient's Family has opted for hospice care. Planning for home hospice with DME to be delivered tomorrow morning. Hopeful discharge tomorrow following this. (5) Atrial fibrillation: Code(s): I48.91 - Unspecified atrial fibrillation Status: Acute Assessment and Plan: Rate is controlled Patient is s/p watchman procedure. not on anticoagulation given bleeding risk due to frequent falls Heart rate remains stable Continue with p.o. amiodarone (6) LIBIA (obstructive sleep apnea): Code(s): G47.33 - Obstructive sleep apnea (adult) (pediatric) Status: Acute Assessment and Plan: Home settings for BiPAP/CPAP (7) Hypertension: Code(s): I10 - Essential (primary) hypertension Status: Acute Assessment and Plan: blood pressures are stable, somewhat soft. last BP 101/68 Will decrease furosemide to 40 mg daily Hold lisinopril Continue metoprolol, amiodarone, and isosorbide for cardiac needs (8) Diabetes mellitus: Code(s): E11.9 - Type 2 diabetes mellitus without complications Status: Acute Assessment and Plan: A1c is 7.5. Blood sugars controlled continue Accu-Cheks, sliding scale insulin, hypoglycemic protocol continue home Januvia metformin on hold (9) Dark stools: Code(s): R19.5 - Other fecal abnormalities Status: Acute Assessment and Plan: patient's nurse reports today that pt had two dark stools, almost maroon in color. There was some concern for blood. H&H is stable Planning for hospice care as above therefore will defer any further workup of possible occult blood in stool Subjective Date/time seen: 08/03/22 15:41 Interval history: Date of service: 08/03/2022 Jesus Landis is an 81-year-old male with history of CKD, hypertension, atrial fibrillation s/p watchman procedure, prostate cancer, diabetes mellitus, and several other medical problems who is seen in follow-up after suffering a fall. The patient is a poor historian and does not reliably contribute to history. He states that he is doing fairly well today. He is more comfortable. He has no issues with his Young catheter. He is tolerating his diet. He denies shortness of breath, cough, or chest pain. No other concerns patient's nurse reports to me today the patient had to dark stools, almost maroon in color. There was some concern for blood. Patient's H&H is stable and his has decided to proceed with hospice care, patient will be dis
[2022-08-03 16:43] LABS: Glucose Point of Care 127 mg/dl (65-105)
[2022-08-03 19:40] VITALS: BP 135/71; PULSE 93; RESP 20; TEMP 36.4; O2SAT 98
[2022-08-03] MEDS: ATORVASTATIN 40 MG TABLET PO (20:56)
[2022-08-03] MEDS: QUEtiapine FUMARATE 25 MG TABLET PO (20:56)
[2022-08-03 21:51] LABS: Glucose Point of Care 149 mg/dl (65-105)
[2022-08-04 04:51] VITALS: BP 121/59; PULSE 85; RESP 20; TEMP 36.4; O2SAT 98
[2022-08-04 06:05] LABS: Hematocrit 33.5 % (42.0-52.0); Hemoglobin 10.3 g/dL (14.0-18.0); Mean Corpuscular HGB Conc 30.7 g/dl (32-36); Mean Corpuscular Hemoglobin 26.2 pg (26-34); Mean Corpuscular Volume 85.2 fl (80-100); Mean Platelet Volume 10.1 fl (7.4-10.4); Platelet Count Result 340 k/mm3 (150-375); Red Blood Count 3.93 M/mm3 (4.6-6.20); Red Cell Distribution Width 17.9 % (11.5-14.5); White Blood Count 7.5 K/mm3 (4.5-10.0)
[2022-08-04 06:13] LABS: Anion Gap 7 mmol/L (8-16); Blood Urea Nitrogen 9 mg/dL (9-20); Calcium 8.7 mg/dL (8.4-10.2); Carbon Dioxide 28 mmol/L (22-30); Chloride 102 mmol/L (98-107); Estimated CRCL calculation 100 ml/min; Estimated Glomerular Filt Rate > 60; Glucose 132 mg/dL (65-110); Magnesium 1.8 mg/dL (1.6-2.3); Potassium 3.4 mmol/L (3.4-5.0); Sodium 137 mmol/L (137-145)
[2022-08-04 08:45] LABS: Glucose Point of Care 143 mg/dl (65-105)
--- NOTE | 2022-08-04 08:45 | PM.DS ---
DS: Admitting Diagnosis Discharge Date 08/04/22 0845 Admitting Diagnosis UTI/COVID DS: Discharge Diagnosis Discharge Diagnosis (1) UTI (urinary tract infection): Code(s): N39.0 - Urinary tract infection, site not specified Status: Acute Assessment and Plan: urinalysis abnormal on presentation Urine culture with growth of vancomycin-resistant Enterococcus received IV ampicillin per sensitivities. Transitioned to PO amoxicillin on 08/01 per ID pharmD recs. 500 mg q8h to complete 7 days. last dose this evening (2) COVID: Code(s): U07.1 - COVID-19 Status: Acute Assessment and Plan: patient reportedly positive for COVID-19 on 07/20/2022 at nursing facility COVID-19 PCR positive on admission on 07/27/2022 patient has no oxygen requirement and therefore no specific COVID-19 therapy is indicated supportive care isolation precautions can be discontinued given onset and duration of COVID-19. Isolation protocols deferred to electrical cad technician (3) Chronic renal failure, stage 3 (moderate): Code(s): N18.30 - Chronic kidney disease, stage 3 unspecified Status: Acute Assessment and Plan: labs are stable. no acute issues (4) Dementia: Code(s): F03.90 - Unspecified dementia, unspecified severity, without behavioral disturbance, psychotic disturbance, mood disturbance, and anxiety Status: Acute Assessment and Plan: patient with dementia, progressively declining over the last several months per patient's Family has opted for hospice care. Planning for home hospice with DME to be delivered tomorrow morning. Hopeful discharge tomorrow following this. (5) Atrial fibrillation: Code(s): I48.91 - Unspecified atrial fibrillation Status: Acute Assessment and Plan: Rate is controlled Patient is s/p watchman procedure. not on anticoagulation given bleeding risk due to frequent falls Heart rate remains stable Continue with p.o. amiodarone (6) LIBIA (obstructive sleep apnea): Code(s): G47.33 - Obstructive sleep apnea (adult) (pediatric) Status: Acute Assessment and Plan: Home settings for BiPAP/CPAP (7) Hypertension: Code(s): I10 - Essential (primary) hypertension Status: Acute Assessment and Plan: blood pressures are stable, somewhat soft. last BP 121/59 Will decrease furosemide to 40 mg daily Hold lisinopril, continue to hold post discharge Continue metoprolol, amiodarone, and isosorbide for cardiac needs (8) Diabetes mellitus: Code(s): E11.9 - Type 2 diabetes mellitus without complications Status: Acute Assessment and Plan: A1c is 7.5. Blood sugars controlled continue Accu-Cheks, sliding scale insulin, hypoglycemic protocol continue home Januvia metformin on hold (9) Dark stools: Code(s): R19.5 - Other fecal abnormalities Status: Acute Assessment and Plan: patient's nurse reports today that pt had two dark stools, almost maroon in color. There was some concern for blood. H&H is stable Planning for hospice care as above therefore will defer any further workup of possible occult blood in stool DS: Summary Hospital Course Hospital Course: patient 81-year-old male with a past medical history of CKD, hypertension, a fib, prostate cancer, diabetes, dementia who presented to the ED after multiple falls. Prior to arrival patient was noted to be COVID positive pr [place]. Patient was noted to have a UTI and urine culture did result to VRE. patient has been treated with IV ampicillin and was transitioned to amoxicillin. Patient was COVID positive on 07/20/2022. Patient is an 10 days of isolation without any need for oxygen or respiratory support through the at the entire visit. Labs have remained stable and BUN/Cr are currently 9/0.60. Patient does have dementia and the family has been dealing with th
--- NOTE | 2022-08-04 08:45 | P.DS_ITS ---
DS: Admitting Diagnosis Discharge Date 08/04/22 0845 Admitting Diagnosis UTI/COVID DS: Discharge Diagnosis Discharge Diagnosis (1) UTI (urinary tract infection): Code(s): N39.0 - Urinary tract infection, site not specified Status: Acute Assessment and Plan: urinalysis abnormal on presentation * Urine culture with growth of vancomycin-resistant Enterococcus * received IV ampicillin per sensitivities. * Transitioned to PO amoxicillin on 08/01 per ID pharmD recs. 500 mg q8h to complete 7 days. last dose this evening (2) COVID: Code(s): U07.1 - COVID-19 Status: Acute Assessment and Plan: patient reportedly positive for COVID-19 on 07/20/2022 at nursing facility * COVID-19 PCR positive on admission on 07/27/2022 * patient has no oxygen requirement and therefore no specific COVID-19 therapy is indicated * supportive care * isolation precautions can be discontinued given onset and duration of COVID- 19. Isolation protocols deferred to electrical and instrumentation manager (3) Chronic renal failure, stage 3 (moderate): Code(s): N18.30 - Chronic kidney disease, stage 3 unspecified Status: Acute Assessment and Plan: labs are stable. no acute issues (4) Dementia: Code(s): F03.90 - Unspecified dementia, unspecified severity, without behavioral disturbance, psychotic disturbance, mood disturbance, and anxiety Status: Acute Assessment and Plan: patient with dementia, progressively declining over the last several months per patient's * Family has opted for hospice care. Planning for home hospice with DME to be delivered tomorrow morning. Hopeful discharge tomorrow following this. (5) Atrial fibrillation: Code(s): I48.91 - Unspecified atrial fibrillation Status: Acute Assessment and Plan: Rate is controlled * Patient is s/p watchman procedure. not on anticoagulation given bleeding risk due to frequent falls * Heart rate remains stable * Continue with p.o. amiodarone (6) LIBIA (obstructive sleep apnea): Code(s): G47.33 - Obstructive sleep apnea (adult) (pediatric) Status: Acute Assessment and Plan: Home settings for BiPAP/CPAP (7) Hypertension: Code(s): I10 - Essential (primary) hypertension Status: Acute Assessment and Plan: blood pressures are stable, somewhat soft. last BP 121/59 * Will decrease furosemide to 40 mg daily * Hold lisinopril, continue to hold post discharge * Continue metoprolol, amiodarone, and isosorbide for cardiac needs (8) Diabetes mellitus: Code(s): E11.9 - Type 2 diabetes mellitus without complications Status: Acute Assessment and Plan: A1c is 7.5. Blood sugars controlled * continue Accu-Cheks, sliding scale insulin, hypoglycemic protocol * continue home Januvia * metformin on hold (9) Dark stools: Code(s): R19.5 - Other fecal abnormalities Status: Acute Assessment and Plan: patient's nurse reports today that pt had two dark stools, almost maroon in color. There was some concern for blood. * H&H is stable * Planning for hospice care as above therefore will defer any further workup of possible occult blood in stool DS: Summary Hospital Course Hospital Course: patient 81-year-old male with a past medical history of CKD, hypertension, a fib, prostate cancer, diabetes, dementia who presented to the ED after multiple falls. Prior to arrival patient was noted
[2022-08-04 09:17] VITALS: PULSE 85
[2022-08-04] MEDS: ASCORBIC ACID 500 MG TABLET PO ×2 (09:17→17:08)
[2022-08-04] MEDS: METOPROLOL SUCCINATE EXT REL 25 MG TABCR PO (09:17)
[2022-08-04] MEDS: SERTRALINE HCL 50 MG TABLET PO (09:17)
[2022-08-04] MEDS: ISOSORBIDE MONONITRATE 30 MG TAB.ER.24H PO (09:17)
[2022-08-04] MEDS: FUROSEMIDE 40 MG TABLET PO (09:17)
[2022-08-04] MEDS: allopurinoL 300 MG TABLET PO (09:17)
[2022-08-04] MEDS: ASPIRIN 81 MG CHEWABLE TABLET PO (09:17)
[2022-08-04 09:18] VITALS: PULSE 85
[2022-08-04] MEDS: ENOXAPARIN 40 MG/0.4 ML SYRINGE SUB-Q (09:18)
[2022-08-04] MEDS: AMIODARONE HCL 200 MG TABLET PO (09:18)
[2022-08-04] MEDS: PANTOPRAZOLE 40 MG TABLET PO ×2 (09:18→17:08)
[2022-08-04] MEDS: SILVERGEL (ELTA) 45 ML 1 APPLIC TOPICAL (09:19)
[2022-08-04] MEDS: traMADol HCL (*CRX) 50 MG TABLET 100 MG PO ×3 (09:20→17:08)
[2022-08-04 14:03] VITALS: BP 105/69; PULSE 88; RESP 18; TEMP 36.8; O2SAT 97
== END 2022-08-04 18:19 | disposition hospice, home (50) | DRG 689 ==
LOC: ANHED 12:37 → ANH2MED 17:50
PROVIDERS: Nurse Practitioner; Physician Assistant; Admitting Provider Family Medicine; Emergency Provider Emergency Medicine; PCP Family Medicine; Visit Provider Nurse Practitioner
DX: N39.0 Urinary tract infection, site not specified (principal); U07.1 COVID-19; Z16.21 Resistance to vancomycin; E87.1 Hypo-osmolality and hyponatremia; I13.0 Hypertensive heart and chronic kidney disease with heart failure and stage 1 through stage 4 chronic kidney disease, or unspecified chronic kidney disease; L97.429 Non-pressure chronic ulcer of left heel and midfoot with unspecified severity; B95.2 Enterococcus as the cause of diseases classified elsewhere; I50.9 Heart failure, unspecified; E11.22 Type 2 diabetes mellitus with diabetic chronic kidney disease; N18.30 Chronic kidney disease, stage 3 unspecified; F03.90 Unspecified dementia, unspecified severity, without behavioral disturbance, psychotic disturbance, mood disturbance, and anxiety; E78.5 Hyperlipidemia, unspecified; I48.91 Unspecified atrial fibrillation; G47.33 Obstructive sleep apnea (adult) (pediatric); R19.5 Other fecal abnormalities; R29.6 Repeated falls; Z96.653 Presence of artificial knee joint, bilateral; Z85.46 Personal history of malignant neoplasm of prostate; Z79.84 Long term (current) use of oral hypoglycemic drugs; Z89.011 Acquired absence of right thumb; Z90.49 Acquired absence of other specified parts of digestive tract
CPT/HCPCS: 36415; 70450; 71260; 72125; 72129; 72132; 73562; 74177; 80048; 80053; 80202; 81001; 82565; 82948; 83036; 83605; 83690; 83735; 84443; 85025; 85027; 87040; 87077; 87086; 87088; 87186; 87637; 96361; 96365; 96367; 97161; 97165; 97530; 97535; 99285; A9270; G0378; J0131; J0290; J0696; J1170; J1630; J1650; J3370; J3475; J7030; Q9967

== ENCOUNTER 2022-08-10 12:54 | HOS | payer OTHER, MEDICARE, SELFPAY ==
[2022-08-10 01:45] VITALS: BMI 32.5
--- NOTE | 2022-08-10 01:57 | ADMGEN ---
This patient, Jesus Landis, was admitted to [facility] Surg Room 318-01. Patient/family oriented to hospital policies and general routines including ID bracelet, bed and alarms, visiting hours, pain management, procedures, bathroom and other care routines, personal items, smoking policy, room service/diet, and visiting hours. Information on how to activate the Rapid Response Team has been discussed. Patient/Family are encouraged to report perceived risks to care and to ask questions if they do not understand what they are told or what they should do.
[2022-08-10 04:46] VITALS: PULSE 70; RESP 20
[2022-08-10] MEDS: HYDROmorphone HCL/PF (*CRX) 50 MG in SODIUM CHLORIDE 0.9% IV 95 ML IV CONT (04:46)
[2022-08-10] MEDS: diazePAM INJ (*CRX) 10 MG/2 ML SYRINGE 5 MG IV PUSH ×3 (05:51→22:59)
[2022-08-10] MEDS: PHENobarbitaL sodium (*CRX) 130 MG/ML VIAL 60 MG IV PUSH ×2 (05:57→22:59)
[2022-08-10 08:00] VITALS: BP 114/48; PULSE 87; RESP 20; TEMP 35.7; O2SAT 91
[2022-08-10 20:00] VITALS: BP 150/79; PULSE 130; PULSE 87; RESP 16; RESP 20; TEMP 36.3; O2SAT 90; O2SAT 91
--- NOTE | 2022-08-10 20:40 | PM.IMHP ---
H&P: HPI History of Present Illness Date/Time: 08/10/22 20:40 Chief Complaint: Uncontrolled agitation Narrative: This 81 y/o male was on hospice for end stage vascular dementia with behaviors. Over the last two weeks he has been eating and drinking less, and becoming more agitated. PPS was 30. He has a jesus and is incontinent. He is dependent for ADLs. Hie had traied multiple doses of hydromorphone 2 mg, lorazepam 1 mg, and one dose of haloperidol 5 gm without relief of his agitation and distress. He was admitted to inpatient hospice 3/ PM for controlled of this uncontrolled agitation. After discussion with his spouse by phone 08/09 PM, she consented to iv hydromorphone, diazepam, and phenobarbital for symptom control with palliative sedation. Since admission last PM has taken only sips of water and ice chips, but has been comfortable. 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 Traumatic amputation of right thumb Family History Family History (Updated 07/27/22 @ 00:25 by Vanessa Fontaine NP) Father Cancer Sibling Heart disease Mother Cerebrovascular accident Social History Social History (Updated 07/27/22 @ 00:26 by Vanessa Fontaine NP) Social History: The patient typically lives with his but is currently at [facility]. His is considering taking him home from the rehab facility. 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 code status dnr Smoking status: Never smoker Second hand tobacco smoke exposure: No Alcohol intake: never Substance use: never Substance use type: does not use Lack of Transportation: No Lack of Food: Never True Current Housing: I Have Housing Concerned About Future Housing: No Difficulty Paying Gas/Electric Bills: No Difficulty Paying for Meds: No Currently Unemployed: No Education: Trade/Vocational Certificate Difficulty w/ Childcare or Family Care: No Living arrangements: with family Occupation/Education: retired Spiritual care concerns: No Meds Home Medications and Allergies Home Medications Medication Instructions Recorded Confirmed Type albuterol sulfate 90 mcg/actuation 2 puff inhalation Q6H PRN 07/18/21 07/26/22 History aerosol inhaler (Ventolin HFA) Shortness Of Breath allopurinol 300 mg tablet 300 mg PO DAILY 07/18/21 07/26/22 History atorvastatin 40 mg tablet 40 mg PO HS 07/18/21 07/26/22 History isosorbide mononitrate 30 mg 30 mg PO DAILY 07/18/21 07/26/22 History tablet,extended release 24 hr lisinopril 10 mg tablet 10 mg PO DAILY 07/18/21 07/26/22 History metformin 1,000 mg tablet 500 mg PO BID 07/18/21 07/26/22 History metoprolol succinate 25 mg 25 mg PO DAILY 07/18/21 07/26/22 History tablet,extended release 24 hr pantoprazole 40 mg tablet,delayed 40 mg PO BID 07/18/21 07/26/22 History release sertraline 50 mg tablet 50 mg PO DAILY 07/18/21 07/26/22 History sitagliptin phosphate 100 mg 100 mg PO DAILY 07/18/21 07/26/22 History tablet (Januvia) tramadol 50 mg tablet 100 mg PO TID 07/18/21 07/26/22 History aspirin 81 mg chewable tablet 81 mg PO DAILY@0800 #30 tabs 07/21/21 07/26/22 Rx ([facility] Asp[facility]in) acetaminophen 650 mg 1,300 mg PO Q8H PRN Pain 07/26/22
[2022-08-10] MEDS: ARTIFICIAL TEARS OPHTH SOLN 15 ML BOTTLE 1 DROP EACH EYE (20:59)
[2022-08-11] MEDS: HYDROmorphone HCL INJ (*CRX) 1 MG/ML SYR IV PUSH ×4 (01:13→12:53)
[2022-08-11] MEDS: diazePAM INJ (*CRX) 10 MG/2 ML SYRINGE 5 MG IV PUSH ×6 (05:39→17:16)
[2022-08-11] MEDS: PHENobarbitaL sodium (*CRX) 130 MG/ML VIAL 60 MG IV PUSH ×2 (06:26→14:24)
[2022-08-11 08:00] VITALS: BP 147/80; PULSE 72; RESP 20; TEMP 36.1; O2SAT 95
[2022-08-11 11:55] VITALS: PULSE 68; RESP 22
[2022-08-11] MEDS: HYDROmorphone HCL INJ (*CRX) 1 MG/ML SYR 2 MG IV PUSH ×2 (14:24→17:16)
--- NOTE | 2022-08-11 15:35 | PM.IMPN ---
Progress Note: A&P Assessment and Plan (1) Palliative care encounter: Code(s): Z51.5 - Encounter for palliative care Status: Acute Assessment and Plan: Meets inpatient hospice criteria due to requiring continuous and scheduled IV medication for symptoms control d/w spouse at bedside that is likely imminent (2) Vascular dementia with behavior disturbance: Code(s): F01.518 - Vascular dementia, unspecified severity, with other behavioral disturbance Status: Acute (3) Chronic renal failure, stage 3 (moderate): Code(s): N18.30 - Chronic kidney disease, stage 3 unspecified Status: Acute (4) Atrial fibrillation: Code(s): I48.91 - Unspecified atrial fibrillation Status: Acute (5) Hypertension: Code(s): I10 - Essential (primary) hypertension Status: Acute (6) Diabetes mellitus: Code(s): E11.9 - Type 2 diabetes mellitus without complications Status: Acute Subjective Date/time seen: 08/11/22 15:35 Interval history: Quiet night, but became agitated earlier today. Not eating or drinking. Doing better after increase in hydromorphone and scheduled prochlorperazine. Review of Systems Review of Systems: ROS unobtainable: Yes unobtainable due to medical condition Exam Narrative: Elderly male lying quietly in hospital bed. No response to verbal or tactile stimuli Sclerae nonicteric. Neck no jvd Chest CTA, NL effort Heart Irregular w/o audible murmur, S1/S1 WNL Abd BS hypoactive, nontender, no mass Extr no edema, mottling of hands, cyanosis of feet MS Right thumb with proximal amputation Neuro CN symmetric to visual inspection Objective Data Vital Signs Vital Signs: Vital Signs - 24 hr 08/10/22 20:00 08/10/22 20:00 08/11/22 08:00 Temperature 97.3 F L Pulse Rate 87 130 H Respiratory Rate 20 16 Blood Pressure 150/79 H Pulse Oximetry 91 90 Oxygen Delivery Room Air Room Air 08/11/22 11:55 Temperature Pulse Rate 68 Respiratory Rate 22 H Blood Pressure Pulse Oximetry Oxygen Delivery Meds/Results Medications: Active Medications Generic Name Dose Route Start Last Admin Trade Name Freq PRN Reason Stop Dose Admin Acetaminophen 650 mg 08/10/22 03:35 Acetaminophen 650 Mg Suppository RECTAL Q4H PRN Fever Artificial Tears 1 drop 08/10/22 09:00 08/11/22 08:11 Artificial Tears Ophth Soln 15 Ml Bottle EACH EYE Not Given Q12HR SUMMER Artificial Tears 1 drop 08/10/22 03:34 Artificial Tears Ophth Soln 15 Ml Bottle EACH EYE Q4HR PRN Dry Eye(s) Bisacodyl 10 mg 08/10/22 03:36 Bisacodyl 10 Mg Suppository RECTAL DAILY PRN Constipation Diazepam 5 mg 08/10/22 03:30 08/11/22 14:29 Diazepam Inj (*Crx) 10 Mg/2 Ml Syringe IV PUSH 08/20/22 03:29 5 mg Q2HR PRN Administration Anxiety/Restlessness Diazepam 5 mg 08/10/22 05:00 08/11/22 11:27 Diazepam Inj (*Crx) 10 Mg/2 Ml Syringe IV PUSH 5 mg Q6H SUMMER Administration Glycopyrrolate 0.1 mg 08/10/22 03:32 Glycopyrrolate Inj (*Sp) 0.2 Mg/Ml Vial IV PUSH Q4H PRN Secretions Hydromorphone HCl 2 mg 08/11/22 11:55 08/11/22 14:24 Hydromorphone Hcl Inj (*Crx) 1 Mg/Ml Syr IV PUSH 2 mg Q2H PRN Administration Pain or SOB Hydromorphone HCl 50 mg/ 100 mls @ 2 mls/hr 08/10/22 04:15 08/11/22 11:55 Sodium Chloride IV CONT 1 mg/hr .Q24H SUMMER 2 mls/hr Infusion 1 MG/HR Phenobarbital Sodium 60 mg 08/10/22 06:00 08/11/22 14:24 Phenobarbital Sodium (*Crx) 130 Mg/Ml Vial IV PUSH 60 mg Q8HR SUMMER Administration Prochlorperazine Edisylate 10 mg 08/11/22 14:38 Prochlorperazine Edisylate 10 Mg/2 Ml Vial IV PUSH Q6H PRN Nausea And Vomiting
[2022-08-11 20:00] VITALS: BP 60/40; PULSE 57; RESP 20; TEMP 36.8; O2SAT 85
[2022-08-11] MEDS: ARTIFICIAL TEARS OPHTH SOLN 15 ML BOTTLE 1 DROP EACH EYE (21:29)
--- NOTE | 2022-08-12 08:27 | P.DN_ITS ---
Discharge Summary Date and Time Date of : 08/12/22 Provider Pronounced By: [id number] Probable Cause of Probable Cause of : vascular dementia with behaviors Summary Hospital Course: Admitted to inpatient hospice due to uncontrolled terminal agitation at home. Medications were titrated to comfort. Mr. Landis peacefully. Additional Data Confirmation of as documented by pronouncing clinician: Pupillary Reflex, Palpable Pulses, Response to Stimuli, Heart Tones and Breath Sounds Name of Provider Notified: Lisa Vincent Provider Notified: 00:55 Provider Requests Autopsy: No Family Requests Autopsy: No Library Acquisitions Technician Notified: Yes Date [facility] Notified of : 08/12/22 Time [facility] Notified of : 00:56
== END 2022-08-12 00:30 | disposition expired | DRG 951 ==
PROVIDERS: Admitting Provider Internal Medicine; PCP Family Medicine; Visit Provider Internal Medicine
DX: Z51.5 Encounter for palliative care (principal); F01.518 Vascular dementia, unspecified severity, with other behavioral disturbance; I48.91 Unspecified atrial fibrillation; I12.9 Hypertensive chronic kidney disease with stage 1 through stage 4 chronic kidney disease, or unspecified chronic kidney disease; E11.22 Type 2 diabetes mellitus with diabetic chronic kidney disease; N18.30 Chronic kidney disease, stage 3 unspecified; E78.5 Hyperlipidemia, unspecified; G47.33 Obstructive sleep apnea (adult) (pediatric); Z85.46 Personal history of malignant neoplasm of prostate; Z89.011 Acquired absence of right thumb; Z89.022 Acquired absence of left finger(s); Z90.49 Acquired absence of other specified parts of digestive tract; Z98.49 Cataract extraction status, unspecified eye; Z96.1 Presence of intraocular lens; Z96.653 Presence of artificial knee joint, bilateral; Z79.84 Long term (current) use of oral hypoglycemic drugs; Z79.82 Long term (current) use of aspirin
CPT/HCPCS: A9270; J1170; J2560; J3360